=== PATIENT | male | born 1965 | race Caucasian/White ===

== ENCOUNTER 2016-11-20 20:55 | Inpatient (IN) | payer OTHER ==
[~2016-11-20] VITALS: Ht 172.7 cm; Wt 90.7 kg
--- NOTE | 2016-11-20 21:10 | NUR ---
C/O DIFFUSE ABDOMINAL PAIN, LAST BM YESTERDAY AND MINIMAL AND HARD CLUMPS. REPORTS GAS DISCOMFORT BUT UNABLE TO PASS MUCH GAS OR BM TODAY. PAIN IS CONSTANT, ACHING AND DEEP DIFFUSE ABD AND TENDER TO TOUCH. AFEBRILE. +N/-V. PT HAS HX UMBILICAL HERNIA. FEELS PRESSURE ON HIS BLADDER, STATES URINE IS DISCOLORED. TOOK MIRALAX AND SUPPOSITORY WITH MINIMAL RELIEF. PT IS ON COUMADIN, DENIES BLOOD TO STOOL
--- NOTE | 2016-11-20 21:18 | NUR ---
[facility] THAKK[facility] SENT T O LAB VIA S/S
[2016-11-20 21:24] LABS: ABSOLUTE BASOPHIL COUNT 0 /CUMM (0.0-0.2); ABSOLUTE EOSINOPHIL COUNT 0 /CUMM (0.0-0.7); ABSOLUTE GRANULOCYTE CT 17.1 /CUMM (1.4-6.5); ABSOLUTE LYMPH COUNT 1.8 /CUMM (1.2-3.4); ABSOLUTE MONOCYTE COUNT 0.7 /CUMM (0.10-0.60); BASOPHIL % 0.1 % (0.0-2.0); EOSINOPHIL % 0.2 % (0-5); HEMATOCRIT 47.9 % (42-52); MEAN CORPUSCULAR HGB 33.1 PG (27.0-31.0); MEAN CORPUSCULAR HGB CONC 34.6 G/DL (33.0-37.0); MEAN CORPUSCULAR VOLUME 95.5 FL (80.0-94.0); MEAN PLATELET VOLUME 7.4 FL (7.4-10.4); PLATELET COUNT 207 /CUMM (130-400); RED BLOOD CELL CT 5.01 /CUMM (4.70-6.10); WHITE BLOOD CELL COUNT 19.6 /CUMM (4.8-10.8)
[2016-11-20 21:30] LABS: GRANULOCYTE % 87.2 % (42.2-75.2)
[2016-11-20 21:36] LABS: PT 31.7 SEC (9.4-12.5); PTT 46 SEC (25-37)
[2016-11-20] MEDS ORDERED: WARFARIN SODIU7.5 M1 PO (22:06)
[2016-11-20] MEDS ORDERED: ATENOLOL25 M1 PO (22:07)
[2016-11-20] MEDS ORDERED: LOSARTAN-HCTZ1 EAC2 PO (22:07)
[2016-11-20] MEDS ORDERED: COUMADIN7.5 M1 PO (22:07)
[2016-11-20] MEDS ORDERED: MULTI-DAY VITA1 EACH PO (22:07)
[2016-11-20] MEDS ORDERED: AMLODIPINE BESYL5 M1 PO (22:07)
[2016-11-20] MEDS ORDERED: ALEVE220 M1 PO (22:08)
--- NOTE | 2016-11-20 22:16 | ED GI/GU/ABDOMINAL COMPLAINT ---
History of Present Illness General Chief Complaint: Abdominal Pain/Flank Pain Stated Complaint: PT IS HAVING ABDOMINAL PAIN Source: patient, family, old records Exam Limitations: no limitations Vital Signs & Intake/Output Vital Signs & Intake/Output Vital Signs Date Time Temp Pulse Resp B/P B/P Pulse O2 O2 Flow FiO2 Mean Ox Delivery Rate 11/25 0808 82 150/82 11/25 0640 99.2 72 20 146/80 97 CPAP 11/24 2253 97.8 71 20 136/68 97 Room Air 11/24 1448 97.9 66 20 138/80 98 ED Intake and Output 11/25 0000 11/24 1200 Intake Total 2128.5 1050 Output Total 600 Balance 1528.5 1050 Intake, IV 1408.5 950 Intake, Oral 720 100 Number 2 3 Bowel Movements Output, Urine 600 Allergies Coded Allergies: No Known Allergies (11/20/16) Reconcile Medications Amlodipine Besylate 5 MG TABLET 1 TAB PO DAILY BP (Reported) Atenolol 25 MG TABLET 1 TAB PO DAILY BP (Reported) Losartan/Hydrochlorothiazide (Losartan-Hctz 100-25 MG Tab) 100 MG-25 MG TABLET 1 TAB PO DAILY BP (Reported) Multivitamin (Multi-Day Vitamins) 1 EACH TABLET 1 TAB PO DAILY SUPPLEMENT ( Reported) Naproxen Sodium (Aleve) 220 MG CAPSULE 2 TAB PO ONCE PAIN (Reported) Warfarin Sodium 7.5 MG TABLET 1 TAB PO SuTuThSa BLOOD THINNER (Reported) Warfarin Sodium (Coumadin) 7.5 MG TABLET 0.5 TAB PO Friday BLOOD THINNER (Reported) Triage Note: C/O DIFFUSE ABDOMINAL PAIN, LAST BM YESTERDAY AND MINIMAL AND HARD CLUMPS. REPORTS GAS DISCOMFORT BUT UNABLE TO PASS MUCH GAS OR BM TODAY. PAIN IS CONSTANT, ACHING AND DEEP DIFFUSE ABD AND TENDER TO TOUCH. AFEBRILE. +N/-V. PT HAS HX UMBILICAL HERNIA. FEELS PRESSURE ON HIS BLADDER, STATES URINE IS DISCOLORED. TOOK MIRALAX AND SUPPOSITORY WITH MINIMAL RELIEF. PT IS ON COUMADIN, DENIES BLOOD TO STOOL Triage Nurses Notes Reviewed? yes HPI: 51M PMH AVR s/p [facility] Valve on Coumadin, HTN, presenting with 1 day of 10/ 10 lower abdominal pain, exquisitely tender, 2 small loose stools. Denies nausea, vomiting, fever, chills, chest pain, SOB. No appetite so has not been eating, but has been drinking plenty of water. Feels well otherwise, no prior symptoms. Denies bloody stools, constipation. Still passing gas. Past History Travel History Traveled to [place] past 21 day No Medical History Any Pertinent Medical History? see below for history Neurological: NONE EENT: NONE Cardiovascular: hypertension, ARTIFICIAL AORTIC VALVE Respiratory: NONE Gastrointestinal: NONE Hepatic: NONE Renal: NONE Musculoskeletal: NONE Psychiatric: NONE Endocrine: NONE Surgical History Surgical History: aortic valve replacement Psychosocial History What is your primary language [place] Tobacco Use: Never used ETOH Use: occasional use Illicit Drug Use: denies illicit drug use Family History Hx Contributory? No Review of Systems Review of Systems Constitutional: Reports: no symptoms. EENTM: Reports: no symptoms. Respiratory: Reports: no symptoms. Cardiovascular: Reports: no symptoms. GI: Reports: see HPI. Genitourinary: Reports: no symptoms. Musculoskeletal: Reports: no symptoms. Skin: Reports: no symptoms. Neurological/Psychological: Reports: no symptoms. Hematologic/Endocrine: Reports: no symptoms. Immunologic/Allergic: Reports: no symptoms. All Other Systems: Reviewed and Negative Physical Exam Physical Exam General Appearance: well developed/nourished, no apparent distress, alert, awake , comfortable Head: atraumatic, normal appearance Eyes: Bilateral: normal appearance. Ears, Nose, Throat, Mouth: moist mucous membrane Neck: normal inspection, supple Respiratory: normal breath sounds, chest non-tender, no respiratory distress, lungs clear Cardiovascular: regular rate/rhythm Gastrointestinal: tenderness to light palpiation to lower abdomen Extremities: normal range of motion Core Measures ACS in differential dx? No Severe Sepsis Present: No Septic Shock Present: No Progress Differential Diagnosis: AAA, AMI, appendicitis, biliary colic, bowel obstruction , colon cancer, cholecystitis, diverticulitis, epididymitis, esophageal varices, gastritis, hepatitis, hernia, hemorrhoids, ischemic bowel, inflamm bowel dis, Britany-Vanessa tear, orchitis, pancreatitis, prostatitis, peptic ulcer, PUD/GERD, perforated viscous, pyelonephritis, SBO, STD, testicular torsion, ureterolithiasis, urinary retention, urethritis, UTI/pyelo Plan of Care: Orders Procedure Date/time Status PARTIAL THROMBOPLASTIN TIME 11/25 1930 Active PARTIAL THROMBOPLASTIN TIME 11/25 0815 Complete PROTHROMBIN TIME 11/25 0600 Complete CBC WITHOUT DIFFERENTIAL 11/25 0600 Complete BASIC ELECTROLYTES PLUS BUN&CR 11/25 0600 Complete Nursing Misc 11/25 UNK Active Current Medications Sig/Pricila Start time Last Medication Dose Stop Time Status Admin Atenolol 25 MG DAILY 11/22 1833 AC 11/25 (Tenormin) 0808 Ceftriaxone Sodium 1,000 MG Q24H 11/21 2345 AC 11/24 (Rocephin) 2357 Morphine Sulfate 2 MG Q2P PRN 11/21 1100 AC 11/25 (Morphine) 1228 Heparin Sodium 25,000 UNIT Q24H 11/21 0115 AC 11/25 (Porcine) 0625 (Heparin) Sodium Chloride 500 ML Metronidazole 500 MG IQ8 11/21 0000 AC 11/25 (Flagyl) 0808 N/A 1 UNIT (No Carrier) Laboratory Tests 11/25/16 0815: APTT Cancelled 11/25/16 0815: Anion Gap 13, Estimated GFR > 60, BUN/Creatinine Ratio 6.7 L, PT 18.2 H, INR 1.74 H, APTT 74 H, CBC w Diff NO MAN DIFF REQ, RBC 4.04 L, MCV 97.1 H, MCH 33.6 H, RDW 13.0, MPV 7.1 L, Gran % 67.8, Lymphocytes % 17.1 L, Monocytes % 10.8 H, Eosinophils % 3.8, Basophils % 0.5, Absolute Granulocytes 6.9 H, Absolute Lymphocytes 1.7, Absolute Monocytes 1.1 H, Absolute Eosinophils 0.4, Absolute Basophils 0, PUBS MCHC 34.6 11/24/16 1925: APTT 68 H Initial ED EKG: none Departure Departure Disposition: STILL A PATIENT Condition: Stable Clinical Impression Primary Impression: Acute diverticulitis Secondary Impressions: Perforated sigmoid colon Referrals: WINNIE VALLES,VELMA Engel (PCP/Family) Departure Forms: Customer Survey General Discharge Information Admission Note Spoke With: DONATO FENG MD Documentation of Exam: Documentation of any treatments & extenuating circumstances including Concerns Regarding Discharge (functional status, medication knowledge or non-compliance, living conditions, etc.) that warrant an admission rather than observation: DIVERTICULITIS WITH PERFORATED SIGMOID COLON DONATO FENG MD Documentation of Exam: Documentation of any treatments & extenuating circumstances including Concerns Regarding Discharge (functional status, medication knowledge or non-compliance, living conditions, etc.) that warrant an admission rather than observation: DIVERTICULITIS WITH PERFORATED SIGMOID COLON (No Carrier) Sodium Chloride 1,000 ML Q8H 11/20 2230 AC 11/21 (Normal Saline 0.9%) 0616 Laboratory Tests 11/21/16 0800: APTT Cancelled 11/21/16 0702: Lactic Acid 0.9, PT 21.7 H, INR 2.08 H, APTT 38 H 11/21/16 0610: Anion Gap 10, Estimated GFR > 60, BUN/Creatinine Ratio 11.1, Total Bilirubin 2.4 H, Direct Bilirubin 0.6 H, AST 25, ALT 37, Alkaline Phosphatase 59, Total Protein 5.8 L, Albumin 3.6, PT 23.5 H, INR 2.26 H, APTT 38 H, CBC w Diff NO MAN DIFF REQ, RBC 4.40 L, MCV 95.6 H, MCH 33.5 H, RDW 13.2, MPV 7.8, Gran % 87.2 H, Lymphocytes % 6.9 L, Monocytes % 5.7, Eosinophils % 0.2, Basophils % 0 L, Absolute Granulocytes 12.7 H, Absolute Lymphocytes 1.0 L, Absolute Monocytes 0.8 H, Absolute Eosinophils 0, Absolute Basophils 0, PUBS MCHC 35.0 11/21/16 0233: Lactic Acid Cancelled 11/21/16 0010: Lactic Acid Cancelled 11/20/16 2333: Lactic Acid Cancelled, Urine Color YEL, Urine Clarity CLEAR, Urine pH 7.5, Ur Specific [place] <= 1.005, Urine Protein NEG, Urine Ketones NEG, Urine Nitrite NEG, Urine Bilirubin NEG, Urine Urobilinogen 0.2, Ur Leukocyte Esterase NEG, Ur Microscopic SEDIMENT EXAMINED, Urine RBC 10-15 H, Ur Epithelial Cells RARE, Urine Bacteria FEW H, Urine Hemoglobin MOD H, Urine Glucose NEG 11/20/16 2116: Anion Gap 12, Estimated GFR > 60, BUN/Creatinine Ratio 12.2, Glucose 118 H, Lactic Acid 1.2, Calcium 9.3, Total Bilirubin 2.9 H, Direct Bilirubin 0.9 H, AST 33, ALT 45, Alkaline Phosphatase 68, Total Protein 6.8, Albumin 4.3, Globulin 2.5, Albumin/Globulin Ratio 1.7, Lipase 26, PT 31.7 H, INR 3.05 H, APTT 46 H, CBC w Diff NO MAN DIFF REQ, RBC 5.01, MCV 95.5 H, MCH 33.1 H, RDW 13.0, MPV 7.4, Gran % 87.2 H, Lymphocytes % 9.0 L, Monocytes % 3.5, Eosinophils % 0.2, Basophils % 0.1, Absolute Granulocytes 17.1 H, Absolute Lymphocytes 1.8, Absolute Monocytes 0.7 H, Absolute Eosinophils 0, Absolute Basophils 0, PUBS MCHC 34.6 Microbiology 11/21 718 BLOOD: Blood Culture - RECD 11/21 701 BLOOD: Blood Culture - RECD Initial ED EKG: none Departure Departure Disposition: STILL A PATIENT Condition: Stable Clinical Impression Primary Impression: Acute diverticulitis Secondary Impressions: Perforated sigmoid colon Referrals: WINNIE VALLES,VELMA Engel (PCP/Family) Departure Forms: Customer Survey General Discharge Information Admission Note Spoke With: DONATO FENG MD Documentation of Exam: Documentation of any treatments & extenuating circumstances including Concerns Regarding Discharge (functional status, medication knowledge or non-compliance, living conditions, etc.) that warrant an admission rather than observation: DIVERTICULITIS WITH PERFORATED SIGMOID COLON
--- NOTE | 2016-11-20 22:18 | NUR ---
IV EST FOR CT
--- NOTE | 2016-11-20 22:22 | NUR ---
PT AWAKE, ALERT, DENIES NAUSEA BUT STATES HE HASNT EATEN WELL DUE TO NO APPETITE.
--- NOTE | 2016-11-20 22:22 | NUR ---
PT IN ROOM 7. DR LAWSON IN TO SEE PT AND DISCUSS PLAN FOR CTA
--- NOTE | 2016-11-20 22:36 | NUR ---
MORPHINE GIVEN FOR PAIN
--- NOTE | 2016-11-20 22:36 | NUR ---
PT AWARE HE NEEDS TO PROVIDE URINE SPECIMEN
--- NOTE | 2016-11-20 23:13 | NUR ---
PT TO CT SCAN
--- NOTE | 2016-11-20 23:18 | NUR ---
PT RETURNED FROM CT SCAN
--- NOTE | 2016-11-20 23:37 | CT SCAN REPORT ---
EXAMINATION: CT ANGIOGRAM ABDOMEN AND PELVIS CLINICAL INFORMATION: Severe abdominal pain. Elevated lactate. Concern for mesenteric ischemia. COMPARISON: None TECHNIQUE: Contiguous axial thin section helical images of the abdomen and pelvis were performed following the administration of 95 mL of intravenous Optiray 350. The data set was reformatted in the coronal and sagittal planes and reviewed on an independent workstation. 3-D reconstructions will be performed and interpreted by the Interventional Radiologist. DLP: 845 mGy-cm. FINDINGS: There is streaky bibasilar opacification within the posterior basal segments bilaterally. The visualized portions of the heart are unremarkable. The liver is of normal size and attenuation without focal lesions nor intrahepatic biliary ductal dilation. A normal gallbladder is identified. There is no wall thickening or discernible pericholecystic fluid. The spleen, pancreas, adrenal glands are unremarkable. Both kidneys are of normal size and attenuation without hydronephrosis or nephrolithiasis. Following the administration of IV contrast, prompt symmetric nephrograms are displayed. There is no abdominal free fluid. There is neither mesenteric nor retroperitoneal lymphadenopathy. There is a fat-containing umbilical hernia. There is sigmoid diverticulosis. There is fat stranding and wall thickening about the sigmoid colon. There are several flecks of gas present that are likely extraluminal best demonstrated on image [id number]. In addition, there is a small amount of gas anterior to the right lobe of the liver. There are no drainable fluid collections. Otherwise, unremarkable unopacified loops of small and large bowel are identified. There is no pelvic free fluid. The urinary bladder is unremarkable. There is neither pelvic nor inguinal lymphadenopathy. There are bilateral fat-containing inguinal hernias. Bone windows: Neither sclerotic nor lytic bone lesions are identified. There is disc height loss at L5/S1 and, to a lesser degree, L4/L5. There is anterior displacement of L4 in relation to L3 and L5. There is slight increased facet joint sclerosis. IMPRESSION: Perforated sigmoid diverticulitis. No drainable fluid collections. Dependent bibasilar atelectasis. No evidence for mesenteric ischemia. Mild anterior displacement of L4 in relation to L5. There are no pars defects. This could be claim representative of pseudocyst listhesis due to degenerative change within the facet joints of the lower lumbar spine. Please note that an addendum will be issued by one of the Interventional Radiologists following review of the dedicated 3-D images. The aforementioned was communicated to Dr. Mendosa at 2332 hours.
--- NOTE | 2016-11-20 23:41 | NUR ---
SECOND LITER OF IVF STARTED. DR LAWSON IN TO REVIEW CT SCAN THAT SHOWED DIVERTICULITIS
--- NOTE | 2016-11-20 23:51 | NUR ---
PT VERBALIZED HISTORY OF HEMACHROMATOSIS AND DONATES BLOOD EVERY FEW MONTHS FOR TREATMENT. LAST DONATION WAS APPROX 2 MONTHS AGO
--- NOTE | 2016-11-21 00:36 | NUR ---
MD MADE AWARE PATIENT REQUESTING MORPHINE D/T CONTINUED PAIN. PER MD, ORDER WILL BE PLACED. PATIENT AND FAMILY INFORMED WAITING.
--- NOTE | 2016-11-21 00:42 | NUR ---
FLAGYL INFUSING AT 100ML/HR PER EMAR. TOLERATING WELL.
--- NOTE | 2016-11-21 00:58 | NUR ---
PATIENT MEDICATED W/ MORPHINE PER EMAR. TOLERATED WELL.
--- NOTE | 2016-11-21 01:02 | History & Physical ---
ANUJA VALLES,[facility] 11/21/16 0101: General Information and HPI MD Statement: I have seen and personally examined NEISHA LANTIGUA and documented this H&P. The patient is a 51 year old M who presented with a patient stated chief complaint of [abdominal pain]. 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 The patient states that his pain started November 19. He states that the pain was a dull lower abdominal pain. The patient states that he goes to work on the second shift. He states he had his breakfast at 1 PM which was an egg on flaxseed bread and efraín. The patient and his endorse eating bread containing lots of grains and seeds. They also endorse eating alot of meat. The patient states he went to work after breakfast had to return home early at 6: 30PM due to the pain. He stated at that time the pain was a 9 out of 10. The patient then tried multiple laxatives, MiraLAX and a suppository because he thought he was constipated/had a blockage. He states that the pain he was feeling was similar to pain when he had constipation previously. Today he had one small bowel movement. The pain was a constant sharp,pressure but is now diffuse. The most intense pain is just below his belly button. He took 2 Aleve' s this afternoon which provided very little benefit. The patient decided to come into the emergency department since the pain would not reside. The patient reports that the increase in intra-abdominal pressure has caused him to urinate more forcefully. The patient denies any nausea or vomiting, fevers, chills, chest pain, or shortness of breath. Of note, the patient reports multiple colonoscopies due to his brother's colon cancer. Allergies/Medications Allergies: Coded Allergies: No Known Allergies (11/20/16) Home Med list Amlodipine Besylate 5 MG TABLET 1 TAB PO DAILY BP (Reported) Atenolol 25 MG TABLET 1 TAB PO DAILY BP (Reported) Losartan/Hydrochlorothiazide (Losartan-Hctz 100-25 MG Tab) 100 MG-25 MG TABLET 1 TAB PO DAILY BP (Reported) Multivitamin (Multi-Day Vitamins) 1 EACH TABLET 1 TAB PO DAILY SUPPLEMENT ( Reported) Naproxen Sodium (Aleve) 220 MG CAPSULE 2 TAB PO ONCE PAIN (Reported) Warfarin Sodium 7.5 MG TABLET 1 TAB PO AD BLOOD THINNER (Reported) Warfarin Sodium (Coumadin) 7.5 MG TABLET 0.5 TAB PO Friday BLOOD THINNER (Reported) Past History Travel History Traveled to [place] past 21 day No Medical History Neurological: NONE EENT: NONE Cardiovascular: aortic aneurysm, hypertension, St. Asad's valve on coumadin Respiratory: NONE Gastrointestinal: NONE Hepatic: NONE Renal: NONE Musculoskeletal: NONE Psychiatric: NONE Endocrine: NONE Surgical History Surgical History: aortic aneurysm repair and St. Asad's valve insertion Past Family/Social History Family History Relations & Conditions if any BROTHER FH: colon cancer Psychosocial History Smoking Status: Never Smoked ETOH Use: occasional use Illicit Drug Use: denies illicit drug use Review of Systems Review of Systems Constitutional: Denies: chills, fever. Cardiovascular: Denies: chest pain. Respiratory: Denies: short of breath. GI: Denies: nausea, vomiting. Exam & Diagnostic Data Last 24 Hrs of Vital Signs/I&O Vital Signs Date Time Temp Pulse Resp B/P B/P Pulse O2 O2 Flow FiO2 Mean Ox Delivery Rate 11/21 0352 98.9 89 18 120/73 94 Room Air 11/20 2330 99.6 81 18 121/72 96 Room Air 11/20 2105 98.4 92 16 120/81 97 Room Air Intake & Output 11/21 0800 11/21 0000 11/20 1600 Intake Total 1000 2000 Output Total Balance 1000 2000 Intake, IV 1000 2000 Patient 204 lb Weight Physical Exam General Appearance Alert, Oriented X3, Cooperative, No Acute Distress HEENT Atraumatic, PERRLA, EOMI, CN 2-12 intact Cardiovascular Regular Rate, Normal S1, Normal S2, systolic murmurloudest in the pulmonic region Lungs Clear to Auscultation, Normal Air Movement Abdomen diffuse abdominal tenderness, rebound tenderness, hanna sign, hyperactive bowel sounds, distended abdomen Extremities No Edema, Normal Pulses Diagnostic Data Other Results CT ABD IMPRESSION: Perforated sigmoid diverticulitis. No drainable fluid collections. Dependent bibasilar atelectasis. No evidence for mesenteric ischemia. Mild anterior displacement of L4 in relation to L5. There are no pars defects. This could be medical customer service representative of pseudocyst listhesis due to degenerative change within the facet joints of the lower lumbar spine. Please note that an addendum will be issued by one of the Interventional Radiologists following review of the dedicated 3-D images. Assessment/Plan Assessment: A: 51-year-old male with a past history of hypertension, aortic aneurysm, [facility]. Judes valve on Coumadin, presenting with acute perforation of diverticulitis in the setting of a diet consisting of a lot meats, grains, and seeds. As Ranked By This Provider Problem List: 1. Acute diverticulitis Assessment/Plan The patient was found to have acute diverticulitis on CT abdomen. WBC was found to be 19.6 but the patient was afebrile at 99.6.The patient will be kept NPO. We will place the patient on normal saline at 125 ml/hour, continue metronidazole and ceftriaxone, and manage his pain as appropriate. We will also obtain bmp, lft, and differential bili. We will obtain a KUB in the AM to asses worsening gas or any acute abdominal changes. The patient states he would like to try antibiotic treatment and conservative medical management first before any surgical intervention. However we will place a surgery consult. We will hold his home medications for now. We encouraged the patient to pass gas as much as possible. Cardiology consult with Dr. Alejandra will be placed in a.m. for cardiac clearance as a precaution if patient needs to go to the OR. We will monitor vitals and trend lactate to watch for sepsis. -NPO for now except ice chips until futher recommendations -f/u bmp, lft, differential bili -Normal saline at 125 mL per hour -Continue metronidazole and ceftriaxone -morphine for pain control -surgery consult -monitor vitals -trend lactate 2. History of artificial heart valve Assessment/Plan The patient has a history of AA with St. Asad's valve replacement. We will consult cardiology for further management recommendations. We will hold his Coumadin and continue heparin drip. -f/u cardiology consult -hold Coumadin -continue heparin drip 3. DVT prophylaxis Assessment/Plan Heparin 4. Full code status Assessment/Plan Full code Core Measures/Miscellaneous Acute Coronary Syndrome ACS Diagnosis: No Cerebrovascular Accident CVA/TIA Diagnosis: No Congestive Heart Failure CHF Diagnosis: No VTE (View Protocol) VTE Risk Factors: Acute medical illness, Age > 40 No [facility] VTE prophylaxis d/t: No contraindications No VTE Pharm Prophylaxis d/t: No contraindications VTE Diagnosis: No VTE Type: NONE VTE Confirmed by (Test): NONE Sepsis (View Protocol) Severe Sepsis Present: No Septic Shock Septic Shock Present: No Miscellaneous Documentation Attending Case Discussed With: DONATO FENG MD Primary Care Physician: VELMA ZHOU MD Patient sees these Specialists Dr. Alejandra Level of Patient Care: General Medicine RODNEY VALLES,[facility] 11/21/16 0358: Exam & Diagnostic Data Last 24 Hrs of Vital Signs/I&O Vital Signs Date Time Temp Pulse Resp B/P B/P Pulse O2 O2 Flow FiO2 Mean Ox Delivery Rate 11/21 2153 99.4 91 20 130/72 94 Room Air 11/21 1640 Room Air Room Air 11/21 1420 98.5 84 20 138/72 94 11/21 1035 98.8 83 18 122/74 94 11/21 0933 99.1 86 20 136/74 94 Room Air Room Air 11/21 0755 99.0 88 18 113/68 94 Room Air 11/21 0618 98.8 80 18 133/70 96 Room Air 11/21 0352 98.9 89 18 120/73 94 Room Air Intake & Output 11/22 0800 11/22 0000 11/21 1600 Intake Total 1130 Output Total 550 Balance 580 Intake, IV 1100 Intake, Oral 30 Output, Urine 550 Patient 91.172 kg Weight Weight Standing Scale Measurement Method Core Measures/Miscellaneous Acute Coronary Syndrome ACS Diagnosis: No Cerebrovascular Accident CVA/TIA Diagnosis: No Congestive Heart Failure CHF Diagnosis: No VTE (View Protocol) VTE Risk Factors: Acute medical illness, Age > 40 No Mech VTE prophylaxis d/t: No contraindications No VTE Pharm Prophylaxis d/t: No contraindications VTE Diagnosis: No VTE Type: NONE VTE Confirmed by (Test): NONE Sepsis (View Protocol) Severe Sepsis Present: No Septic Shock Septic Shock Present: No Miscellaneous Documentation Attending Case Discussed With: DONATO FENG MD Primary Care Physician: VELMA ZHOU MD Patient sees these Specialists Dr Alejandra Level of Patient Care: General Medicine Resident Review Statement Resident Statement: examined this patient, discussed with restaurant management internship, agreed with restaurant management internship, discussed with family Other Findings: Mr Lantigua is a pleasant 51-year-old gentleman with past medical history of hypertension, 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 The patient states that his discomfort began on 11/19/2016 at approximately 1 PM after he consumed a flax seed efraín roll with 2 eggs. At approximately 6:30 PM on Friday evening the patient was unable to complete his shift and had to go home early due to increasing abdominal discomfort. Over the course of 36 hours prior to admission the patient attempted to take multiple stool softeners and laxatives for symptomatic relief owing to the fact that he thought that he was constipated. Patient also reports that he took 2 Aleve's which he states helped the pain. The patient does have a history of eating foods with a lot of seeds and nuts. His also states he does consume a lot of meat in his diet. He states prior to coming the pain was intolerable rated added 8-9 out of 10 described as a pressure type of pain. He states he hasn't had a proper bowel movement interval 48 hours. During the time of clinical infection his Pepper was present at bedside. Denies a history of any abdominal issues however has had to have multiple colonoscopies owing to a positive family history in his brother who at the the age of 35 due to a GI malignancy. He denies smoking but does endorse frequent alcohol use consuming approximately 3 shots of whiskey multiple times a week. R: Review of systems were negative for fever, chills however positive for mild nausea. He also expresses obstipation. E: HEENT: extraocular motion intact, no nystagmus. Pupils equally round and reactive to light and accommodation. Nose is atraumatic. External auditory canal and Tympanic membranes clear. Pharynx normal. No swelling or edema. Appears Flushed. Neck: Supple, no lymphadenopathy, normal range of motion without pain or tenderness Back: Nontender, No CVA tenderness. Skin: No appreciable rash on exposed skin, skin appears Flushed. Cardiovascular: Regular rate and rhythm, systolic murmur present, most prominenet on pulmonic area. Respiratory: Chest nontender. No respiratory distress. Breath sounds clear to auscultation bilaterally Abdomen: Soft, disended, hyperactive BS, no appreciable organomegaly. Rebound tenderness, right. Hanna sign -. Extremity: No edema, no calf tenderness to palpation, normal and equal pulses. Neuro: Alert oriented to person and place,motor sensory normal, CN II to XII wnl. L: Labs White count of: 19.6, H&H 16.6 and 47.9 respectively, platelets 207. Sodium 135, potassium 3.5, BUN 11, creatinine 0.9. Chloride 100. Bicarbonate 24. I: CT abdomen and pelvis showed: Perforated sigmoid diverticulitis. No drainable fluid collections. Dependent bibasilar atelectasis. No evidence for mesenteric ischemia. 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 Imaging studies did show perforated sigmoid diverticulitis. Patient likely has been predisposition to development of diverticulosis due to meat in diet, nuts and seeds. Will admit the patient to general medical service. While the patient was in the emergency department where he received a surgical consultation to rule out need for emergent surgery and intervention. Surgery on board and will continue to monitor and assess need for Lynn procedure in a.m. Continue antibiotics metronidazole and ceftriaxone. May consider switching to Ciprofloxacin for Pseudemonal Coverage. KUB in a.m. to evaluate for worsening gas in abdomen or illeus. If evidence of ileus may have to insert nasogastric tube. Gentle fluid hydration at 150 mL per hour normal saline. Discontinue the patient's Coumadin and begin him on an IV heparin drip owing to anticoagulation needed in the setting of St. Asad's mechanical valve. Monitor heparin values as per protocol. Patient was initially very hesitant to start off heparin earlier. He understood the risks and benefits. He would be agreeable to starting heparin over the course of the day once he feels that his INR might be reduced Cardiology consult with Dr. Alejandra in a.m. Patient will need cardiac clearance if needs to go to OR. Monitor CBC, BEP and INR in a.m. Pain relief with IV morphine as needed. Hold all home medications for now. Nothing by mouth for now further recommendations are obtained. *High risk of recurrence of this disease patient will need to be informed to increase fiber intake, Reduce nuts and seeds and Reduce meat consumption. Patient may also want to be informed that alcohol and the use of NSAIDs has been shown to be a risk factor for development of Diverticular disease. DONATO FENG 11/21/16 0601: Attending MD Review Statement Attending Statement Attending MD Statement: examined this patient, discuss w/resident/PA/VOCATIONAL ED INSTRUCTOR, agreed w/resident/PA/VOCATIONAL ED INSTRUCTOR, discussed with family, reviewed EMR data (avail), reviewed images, amended to note Attending Assessment/Plan: CC: Left lower quadrant abdominal pain PMH: HTN, aortic aneurysm repair, aortic valve replacement Patient came to ER for diffuse lower abdominal pain, started on Friday, worsening over the time, constipation, nausea but no vomiting. Patient thought his pain was secondary to constipation so he tried to take some MiraLAX without any relief. Denies any chest pain, shortness of breath, fever, chills, urinary symptoms or any blood in stool. Vitals: Afebrile, HR in 8os, RR 18, blood pressure 121/72, saturating well on room air On exam: A O 3, cooperative, in distress secondary to pain, tossing and turning in the bed, neck supple, JVD normal, no lymphadenopathy, mucosa moist, no focal neurological deficit, no dependent edema, no obvious skin rashes or inflammation CVS: S1-S2, RRR, systolic murmur in aortic area. RS: Clear to auscultate bilaterally. Abdomen: Tender diffusely, no guarding or rigidity, bowel sounds decreased. Labs: WBC 19.6, neutrophils 87%, hemoglobin 16.6, platelets 207, BMP unremarkable with bicarbonate of 24, anion gap of 12, BUN 11 and creatinine 0.5, glucose 118, total bilirubin 2.9, transaminases and other liver function unremarkable, INR 3.05, UA unremarkable CTA abdomen and pelvis: 1. Perforated sigmoid diverticulitis. No drainable fluid collections. In addition, there is a small amount of gas anterior to the right lobe of the liver. 2. Dependent bibasilar atelectasis. 3. No evidence for mesenteric ischemia. 4. Mild anterior displacement of L4 in relation to L5. There are no pars defects. This could be medical customer service representative of pseudocyst listhesis due to degenerative change within the facet joints of the lower lumbar spine. A and P 51 year old male with past medical history significant for aortic valve replacement secondary to aortic regurgitation happened after emergent aortic aneurysm surgery, presented in ER for acute 1 day duration of left lower quadrant pain. Patient hemodynamically stable, tender on examination but no guarding or rigidity, decreased bowel sounds. Patient is found to have sigmoid diverticulosis with the fat stranding and wall thickening suggestive of diverticulitis with flakes of gas suggestive of perforation small amount of gas anterior to left lobe of liver. Given this acute abdomen I personally called Dr. Delgadillo regarding surgery, who suggested consultative management and asked medical team for admission because of his cardiac history. He suggested to hold off warfarin and continued on heparin drip. + Acute perforated diverticulitis + History of aortic aneurysm repair and aortic valve replacement + Hyperbilirubinemia - Admit to general medicine - Nothing by mouth except ice chips - Continue aggressive hydration - Closely watch blood pressure for any development of hypotension secondary to sepsis - Trend lactate - DC warfarin, continue heparin drip - Continue IV ceftriaxone and metronidazole - Blood cultures - consult cardiology in a.m. - Repeat PT/PTT INR in a.m. - Hold all home antihypertensives - Repeat CBC, CMP in a.m. - Surgical consult - Adequate pain control
--- NOTE | 2016-11-21 01:03 | NUR ---
SURGICAL PA CRISS AT BEDSIDE FOR EVAL.
--- NOTE | 2016-11-21 01:11 | NUR ---
HOUSE STAFF TO BEDSIDE.
--- NOTE | 2016-11-21 01:31 | NUR ---
HOUSE STAFF REMAINS AT BEDSIDE W/ PATIENT. PER HOUSE STAFF, HEPARIN DRIP ORDERED D/T POSSIBLE SURGICAL CANDIDATE, CURRENTLY TAKES WARFARIN WHICH IS BEING D/CARMEN INCASE SURGERY IS REQUIRED, TO BE PLACED ON HEPARIN DRIP INSTEAD. (PATIENT ON COUMADIN FOR ST. JUDES FILTER, PER ESTEBAN).
--- NOTE | 2016-11-21 01:41 | Cons- General Surgery ---
See Addendum General Information and HPI Consulting Request Date of Consult: 11/21/16 Requested By: Hospitalist Service Reason for Consult: Abdominal pain Source of Information: patient, family Exam Limitations: no limitations History of Present Illness: Mr. Rowley is a 51-year-old male with a past medical history of hypertension, St. Asad's valve, Coumadin therapy, who states that 2 days ago had a slow onset of lower abdominal pain when he woke up in the morning. He states that he worked all day but by the end of the day told his Jennifer that he needed to go home because of this pain. Today he stated home but the pain worsened which brought him to the emergency room for evaluation. He denies any nausea or vomiting, he has not had a bowel movement but feels like he has to go, and has no significant urinary complaints at this time. He denies a history of previous abdominal symptoms. CAT scan results reveal microperforation localized to the sigmoid colon without free air and a leukocytosis of 19,000. Allergies/Medications Allergies: Coded Allergies: No Known Allergies (11/20/16) Home Med List: Amlodipine Besylate 5 MG TABLET 1 TAB PO DAILY BP (Reported) Atenolol 25 MG TABLET 1 TAB PO DAILY BP (Reported) Losartan/Hydrochlorothiazide (Losartan-Hctz 100-25 MG Tab) 100 MG-25 MG TABLET 1 TAB PO DAILY BP (Reported) Multivitamin (Multi-Day Vitamins) 1 EACH TABLET 1 TAB PO DAILY SUPPLEMENT ( Reported) Naproxen Sodium (Aleve) 220 MG CAPSULE 2 TAB PO ONCE PAIN (Reported) Warfarin Sodium 7.5 MG TABLET 1 TAB PO AD BLOOD THINNER (Reported) Warfarin Sodium (Coumadin) 7.5 MG TABLET 0.5 TAB PO Friday BLOOD THINNER (Reported) Past History Medical History Neurological: NONE EENT: NONE Cardiovascular: hypertension, ARTIFICIAL AORTIC VALVE Respiratory: NONE Gastrointestinal: NONE Hepatic: NONE Renal: NONE Musculoskeletal: NONE Psychiatric: NONE Endocrine: NONE Blood Disorders: HEMACHROMATOSIS Psychosocial History ETOH Use: occasional use Illicit Drug Use: denies illicit drug use Exam & Diagnostic Data Vital Signs and I&O Vital Signs Date Time Temp Pulse Resp B/P B/P Pulse O2 O2 Flow FiO2 Mean Ox Delivery Rate 11/20 2330 99.6 81 18 121/72 96 Room Air 11/20 2105 98.4 92 16 120/81 97 Room Air Intake & Output 11/21 0800 11/21 0000 11/20 1600 11/20 0800 11/20 0000 11/19 1600 Intake Total 1000 1999 Output Total Balance 1000 2000 Intake, IV 1000 1999 Patient 204 lb Weight Physical Exam General Appearance: anxious, mild distress Head: normal appearance Eyes: Bilateral: PERRL. Respiratory: normal breath sounds Cardiovascular: regular rate/rhythm Gastrointestinal: focal abdominal tenderness to palpation of lower abdomen, positive bowel sounds, no evidence of diffuse peritonitis, softly distended Extremities: no edema Last 24 Hours of Labs: Laboratory Tests 11/21 11/20 0010 2333 Chemistry Lactic Acid Cancelled Cancelled Urines Urine Color (YEL,AMB,STR) YEL Urine Clarity (CLEAR) CLEAR Urine pH (5.0 - 8.0) 7.5 Ur Specific [place] (1.001 - 1.035) <= 1.005 Urine Protein (NEG,<30 MG/DL) NEG Urine Ketones (NEG) NEG Urine Nitrite (NEG) NEG Urine Bilirubin (NEG) NEG Urine Urobilinogen (0.1 - 1.0 EU/dl) 0.2 Ur Leukocyte Esterase (NEG) NEG Ur Microscopic SEDIMENT EXAMINED Urine RBC (0 - 5 /HPF) 10-15 H Ur Epithelial Cells (NONE,FEW) RARE Urine Bacteria (NEG/NONE) FEW H Urine Hemoglobin (NEG) MOD H Urine Glucose (N MG/DL) NEG 11/21 2115 Chemistry Sodium (137 - 145 mmol/L) 135 L Potassium (3.5 - 5.1 mmol/L) 3.5 Chloride (98 - 107 mmol/L) 100 Carbon Dioxide (22 - 30 mmol/L) 24 Anion Gap (5 - 16) 12 BUN (9 - 20 mg/dL) 11 Creatinine (0.7 - 1.2 mg/dL) 0.9 Estimated GFR (>60 ml/min) > 60 BUN/Creatinine Ratio (7 - 25 %) 12.2 Glucose (65 - 99 mg/dL) 118 H Lactic Acid (0.7 - 2.1 mmol/L) 1.2 Calcium (8.4 - 10.2 mg/dL) 9.3 Total Bilirubin (0.2 - 1.3 mg/dL) 2.9 H AST (17 - 59 U/L) 33 ALT (21 - 72 U/L) 45 Alkaline Phosphatase (< 127 U/L) 68 Total Protein (6.3 - 8.2 g/dL) 6.8 Albumin (3.5 - 5.0 g/dL) 4.3 Globulin (1.9 - 4.2 gm/dL) 2.5 Albumin/Globulin Ratio (1.1 - 2.2 %) 1.7 Lipase (23 - 300 U/L) 26 Coagulation PT (9.4 - 12.5 SEC) 31.7 H INR (0.90 - 1.17) 3.05 H APTT (25 - 37 SEC) 46 H Hematology CBC w Diff NO MAN DIFF REQ WBC (4.8 - 10.8 /CUMM) 19.6 H RBC (4.70 - 6.10 /CUMM) 5.01 Hgb (14.0 - 18.0 G/DL) 16.6 Hct (42 - 52 %) 47.9 MCV (80.0 - 94.0 FL) 95.5 H MCH (27.0 - 31.0 PG) 33.1 H RDW (11.5 - 14.5 %) 13.0 Plt Count (130 - 400 /CUMM) 207 MPV (7.4 - 10.4 FL) 7.4 Gran % (42.2 - 75.2 %) 87.2 H Lymphocytes % (20.5 - 51.1 %) 9.0 L Monocytes % (1.7 - 9.3 %) 3.5 Eosinophils % (0 - 5 %) 0.2 Basophils % (0.0 - 2.0 %) 0.1 Absolute Granulocytes (1.4 - 6.5 /CUMM) 17.1 H Absolute Lymphocytes (1.2 - 3.4 /CUMM) 1.8 Absolute Monocytes (0.10 - 0.60 /CUMM) 0.7 H Absolute Eosinophils (0.0 - 0.7 /CUMM) 0 Absolute Basophils (0.0 - 0.2 /CUMM) 0 PUBS MCHC (33.0 - 37.0 G/DL) 34.6 Imaging Results: SERVICE DATE: 11/20/16 EXAM TYPE: CAT - CT ABD & PELVIS ANGIOGRAM EXAMINATION: CT ANGIOGRAM ABDOMEN AND PELVIS CLINICAL INFORMATION: Severe abdominal pain. Elevated lactate. Concern for mesenteric ischemia. COMPARISON: None TECHNIQUE: Contiguous axial thin section helical images of the abdomen and pelvis were performed following the administration of 95 mL of intravenous Optiray 350. The data set was reformatted in the coronal and sagittal planes and reviewed on an independent workstation. 3-D reconstructions will be performed and interpreted by the Interventional Radiologist. DLP: 845 mGy-cm. FINDINGS: There is streaky bibasilar opacification within the posterior basal segments bilaterally. The visualized portions of the heart are unremarkable. The liver is of normal size and attenuation without focal lesions nor intrahepatic biliary ductal dilation. A normal gallbladder is identified. There is no wall thickening or discernible pericholecystic fluid. The spleen, pancreas, adrenal glands are unremarkable. Both kidneys are of normal size and attenuation without hydronephrosis or nephrolithiasis. Following the administration of IV contrast, prompt symmetric nephrograms are displayed. There is no abdominal free fluid. There is neither mesenteric nor retroperitoneal lymphadenopathy. There is a fat-containing umbilical hernia. There is sigmoid diverticulosis. There is fat stranding and wall thickening about the sigmoid colon. There are several flecks of gas present that are likely extraluminal best demonstrated on image 527/783. In addition, there is a small amount of gas anterior to the right lobe of the liver. There are no drainable fluid collections. Otherwise, unremarkable unopacified loops of small and large bowel are identified. There is no pelvic free fluid. The urinary bladder is unremarkable. There is neither pelvic nor inguinal lymphadenopathy. There are bilateral fat-containing inguinal hernias. Bone windows: Neither sclerotic nor lytic bone lesions are identified. There is disc height loss at L5/S1 and, to a lesser degree, L4/L5. There is anterior displacement of L4 in relation to L3 and L5. There is slight increased facet joint sclerosis. IMPRESSION: Perforated sigmoid diverticulitis. No drainable fluid collections. Dependent bibasilar atelectasis. No evidence for mesenteric ischemia. Mild anterior displacement of L4 in relation to L5. There are no pars defects. This could be credit and collections representative of pseudocyst listhesis due to degenerative change within the facet joints of the lower lumbar spine. Please note that an addendum will be issued by one of the Interventional Radiologists following review of the dedicated 3-D images. The aforementioned was communicated to Dr. Mendosa at 2332 hours. DICTATED BY: MINGO LOVE MD DATE/TIME DICTATED:11/20/162321 SUPERVISOR BLASTING:LATONYA DATE/TIME TRANSCRIBED:11/20/162321 Assessment/Plan Assessment/Plan Mr. Rowley is a 51-year-old male with acute onset of abdominal pain that has worsened over the last 24 hours. CAT scan results revealed microperforation of the sigmoid colon without free air. There is also a leukocytosis to 19,000. Given the fact that he has an elevated INR, history of St. Asad's valve, the patient will be admitted to the medical service and placed on a heparin drip in the event that the patient needs to go to surgery for emergent Briseno's procedure. We will continue with serial abdominal exams, intravenous antibiotics, and recommend cardiology consultation by his funeral director Dr. Alejandra. Dr. Delgadillo is aware and will evaluate the patient in the a.m. this surgical plan was discussed in detail with the patient and his and they are also in agreement. Consult Acknowledgment - Thank you for your consult request.
--- NOTE | 2016-11-21 01:42 | NUR ---
HOUSE STAFF REMAINS AT BEDSIDE. FLAGYL INFUSION COMPLETE. NS INITIATED AT 75ML/HR PER EMAR. TOLERATING WELL.
--- NOTE | 2016-11-21 02:07 | NUR ---
HEPARIN DRIP INITIATED AT 26ML/HR (1300 UNITS/HR PER MAX DOSE), VERIFIED W/ JIGNESH HANNON. REPEAT PT/PTT ORDERED FOR 0800 PER POLICY.
--- NOTE | 2016-11-21 02:32 | NUR ---
PATIENT NOW REPORTING "UNCOMFORTABLE W/ HEPARIN DRIP D/T TOOK TO LONG TO GET MY COUMADIN LEVELS UNDER CONTROL." SPOKE IN DEPTH W/ PATIENT REGARDING INDICATION, AND PATIENT MADE AWARE THAT PTT/INR LEVELS CONTINUE TO BE MONITORED, PATIENT CONTINUES TO REQUEST TO SPEAK W/ MD. MD ORELLANA AWARE AND WILL GO TO BEDSIDE TO SPEAK W/ PATIENT. HEPARIN DRIP PLACED ON HOLD.
--- NOTE | 2016-11-21 03:26 | NUR ---
MD FENG AT BEDSIDE SPEAKING W/ PATIENT REGARDING CONCERN FOR HEPARIN DRIP. PER MD, "CAN KEEP DRIP STOPPED AND RESTART AT 0600 THIS AM, PTT/INR TO BE CHANGED FROM 0800 TO 1400." PATIENT PROVIDED ICE CHIPS BY .
--- NOTE | 2016-11-21 03:52 | NUR ---
PATIENT MEDICATED W/ MORPHINE PER EMAR. TOLERATED WELL.
--- NOTE | 2016-11-21 06:02 | Admission Certification ---
Admission Certification Certification Statement - As attending physician, I certify that at the time of - admission, based on clinical presentation, severity of - symptoms, need for further diagnostic testing and - therapeutic interventions, and risk of adverse outcomes - without in-hospital treatment, in my clinical assessment, - this patient requires an acute hospital stay for a minimum - of two nights or longer. I have also considered psychsocial - factors such as support system, advanced age, financial - issues, cognitive issues, and failed out-patient treatments, - past re-admission history, safety of patient, and lack of - compliance as applicable. Specific rationale supporting this admission is: Acute perforated sigmoid diverticulitis
--- NOTE | 2016-11-21 06:04 | NUR ---
BLU INITIATED AND SHEA.
--- NOTE | 2016-11-21 06:08 | NUR ---
NS INCREASED FROM 75ML/HR TO 125ML/HR PER EMAR. TOLERATING WELL. AM LABS IN PROGRESS.
--- NOTE | 2016-11-21 06:12 | NUR ---
ATTEMPT MADE TO REEST HEPARIN DRIP, PATIENT STATES "DON'T REALLY WANT TO, I KNOW I'M COVERED W/ MY COUMADIN. ALSO, THE DOCTORS SAID I COULD START AFTER THE SURGEON COMES IN AT 0715 TODAY IF THEY FELT I STILL NEEDED TO." HOUSE STAFF PAGED TO INFORM.
--- NOTE | 2016-11-21 06:18 | NUR ---
MD ORELLANA AWARE THAT PATIENT REFUSING HEPARIN UNTIL SPEAKS W/ SURGERY THIS AM. ALSO AWARE PATIENT REPORTS PAIN INCREASING SLIGHTLY AGAIN. NO PRN ORDERS FOR PAIN CURRENTLY IN ORDERS.
--- NOTE | 2016-11-21 06:38 | NUR ---
HOUSE STAFF PLACED ORDERS AT THIS TIME FOR LACTIC ACID AND BLOOD CULTURES. SPOKE W/ HOUSE STAFF TO CONFIRM, HOSUE STAFF AWARE PATIENT RECIEVED ABX HOURS PRIOR. PER HOUSE STAFF, BLOOD CULTURES AND LACTIC ACID TO BE COLLECTED AT THIS TIME. YUE KILLIAN AWARE AND AT BEDSIDE FOR A SECOND MORNING LAB BLOODDRAW.
[2016-11-21 06:46] LABS: ABSOLUTE BASOPHIL COUNT 0 /CUMM (0.0-0.2); ABSOLUTE EOSINOPHIL COUNT 0 /CUMM (0.0-0.7); ABSOLUTE GRANULOCYTE CT 12.7 /CUMM (1.4-6.5); ABSOLUTE MONOCYTE COUNT 0.8 /CUMM (0.10-0.60); BASOPHIL % 0 % (0.0-2.0); EOSINOPHIL % 0.2 % (0-5); GRANULOCYTE % 87.2 % (42.2-75.2); MEAN CORPUSCULAR HGB 33.5 PG (27.0-31.0); MEAN CORPUSCULAR VOLUME 95.6 FL (80.0-94.0); MEAN PLATELET VOLUME 7.8 FL (7.4-10.4); PLATELET COUNT 164 /CUMM (130-400); RBC DISTRIBUTION WIDTH 13.2 % (11.5-14.5); WHITE BLOOD CELL COUNT 14.6 /CUMM (4.8-10.8)
[2016-11-21 06:54] LABS: PT 23.5 SEC (9.4-12.5); PTT 38 SEC (25-37)
--- NOTE | 2016-11-21 07:30 | NUR ---
PT TO XRAY VIA STRETCHER
--- NOTE | 2016-11-21 07:39 | NUR ---
PT TO ROOM 230 BED 2
--- NOTE | 2016-11-21 08:03 | RADIOLOGY REPORT ---
EXAMINATION: XR ABDOMEN MULTIPLE VIEWS CLINICAL INDICATION: 51-year-old male patient with obstipation. Recent CT exam done 11/20/2016 diagnosed perforated diverticulitis without abscess formation. COMPARISON: CT of the abdomen and pelvis on 11/20/2016. (Small bubbles of extraluminal gas in the left lower quadrant). TECHNIQUE: AP supine and erect views of the abdomen, 4 exposures. FINDINGS: There is no evidence of free air or obstruction. In fact, air is seen throughout the entire gastrointestinal tract. Volume of air has increased since yesterday. This can be attributed to the patient's pain. Liquid stool is seen in the cecum and hepatic flexure. Multiple calcified phleboliths are present in the pelvis. Surgical clips are present in both proximal thighs. Sternal wires are in place. Platelike atelectasis is evident in both lower lobes. IMPRESSION: No obvious extraluminal gas. Increasing air throughout the entire GI tract attributed to this patient's pain caused by the perforated diverticulitis.
--- NOTE | 2016-11-21 08:29 | NUR ---
MED WITH MORPHINE 2MG IV FOR RETURNING C/O DIFFUSE ABD PAIN, IV FLAGYL INFUSING WITHOUT DIFFICULTY AT THIS TIME. REPORT CALLED TO 2 [facility].
--- NOTE | 2016-11-21 08:32 | NUR ---
[facility] CALLED FOR TRANSPORT TO ROOM # [id number] [address].
[2016-11-21 08:38] LABS: PT 21.7 SEC (9.4-12.5); PTT 38 SEC (25-37)
--- NOTE | 2016-11-21 08:42 | NUR ---
HOUSE STAFF AT BEDSIDE.
--- NOTE | 2016-11-21 09:16 | NUR ---
[facility] RE-CALLED FOR TRANSPORT TO [address] [place] [address] A [id number].
[2016-11-21 10:35] VITALS: BP 122/74
--- NOTE | 2016-11-21 13:06 | PN- Att Addend ---
Attending Addendum Attending Brief Note Patient seen and examined, feeling slightly better today. Still has lower abdominal pain. Seen by surgery and so far conservative management is recommended. Vital Signs Date Time Temp Pulse Resp B/P B/P Pulse O2 O2 Flow FiO2 Mean Ox Delivery Rate 11/21 1035 98.8 83 18 122/74 94 11/21 0933 99.1 86 20 136/74 94 Room Air Room Air 11/21 0755 99.0 88 18 113/68 94 Room Air 11/21 0618 98.8 80 18 133/70 96 Room Air 11/21 0352 98.9 89 18 120/73 94 Room Air 11/20 2330 99.6 81 18 121/72 96 Room Air 11/20 2105 98.4 92 16 120/81 97 Room Air on exam; aox3, nad. cv; s1, s2, rrr resp; clear abd; soft, + lower abd tenderness, bs+ ext; no edema. Laboratory Tests 11/21 11/21 11/21 0800 0702 0610 Chemistry Sodium (137 - 145 mmol/L) 139 Potassium (3.5 - 5.1 mmol/L) 3.4 L Chloride (98 - 107 mmol/L) 105 Carbon Dioxide (22 - 30 mmol/L) 24 Anion Gap (5 - 16) 10 BUN (9 - 20 mg/dL) 10 Creatinine (0.7 - 1.2 mg/dL) 0.9 Estimated GFR (>60 ml/min) > 60 BUN/Creatinine Ratio (7 - 25 %) 11.1 Lactic Acid (0.7 - 2.1 mmol/L) 0.9 Total Bilirubin (0.2 - 1.3 mg/dL) 2.4 H Direct Bilirubin (< 0.4 mg/dL) 0.6 H AST (17 - 59 U/L) 25 ALT (21 - 72 U/L) 37 Alkaline Phosphatase (< 127 U/L) 59 Total Protein (6.3 - 8.2 g/dL) 5.8 L Albumin (3.5 - 5.0 g/dL) 3.6 Coagulation PT (9.4 - 12.5 SEC) 21.7 H 23.5 H INR (0.90 - 1.17) 2.08 H 2.26 H APTT (25 - 37 SEC) Cancelled 38 H 38 H Hematology CBC w Diff NO MAN DIFF REQ WBC (4.8 - 10.8 /CUMM) 14.6 H RBC (4.70 - 6.10 /CUMM) 4.40 L Hgb (14.0 - 18.0 G/DL) 14.7 Hct (42 - 52 %) 42.0 MCV (80.0 - 94.0 FL) 95.6 H MCH (27.0 - 31.0 PG) 33.5 H RDW (11.5 - 14.5 %) 13.2 Plt Count (130 - 400 /CUMM) 164 MPV (7.4 - 10.4 FL) 7.8 Gran % (42.2 - 75.2 %) 87.2 H Lymphocytes % (20.5 - 51.1 %) 6.9 L Monocytes % (1.7 - 9.3 %) 5.7 Eosinophils % (0 - 5 %) 0.2 Basophils % (0.0 - 2.0 %) 0 L Absolute Granulocytes (1.4 - 6.5 /CUMM) 12.7 H Absolute Lymphocytes (1.2 - 3.4 /CUMM) 1.0 L Absolute Monocytes (0.10 - 0.60 /CUMM) 0.8 H Absolute Eosinophils (0.0 - 0.7 /CUMM) 0 Absolute Basophils (0.0 - 0.2 /CUMM) 0 PUBS MCHC (33.0 - 37.0 G/DL) 35.0 11/21 11/21 0233 0010 Chemistry Lactic Acid Cancelled Cancelled 11/20 11/20 9840 6251 Chemistry Sodium (137 - 145 mmol/L) 135 L Potassium (3.5 - 5.1 mmol/L) 3.5 Chloride (98 - 107 mmol/L) 100 Carbon Dioxide (22 - 30 mmol/L) 24 Anion Gap (5 - 16) 12 BUN (9 - 20 mg/dL) 11 Creatinine (0.7 - 1.2 mg/dL) 0.9 Estimated GFR (>60 ml/min) > 60 BUN/Creatinine Ratio (7 - 25 %) 12.2 Glucose (65 - 99 mg/dL) 118 H Lactic Acid (0.7 - 2.1 mmol/L) Cancelled 1.2 Calcium (8.4 - 10.2 mg/dL) 9.3 Total Bilirubin (0.2 - 1.3 mg/dL) 2.9 H Direct Bilirubin (< 0.4 mg/dL) 0.9 H AST (17 - 59 U/L) 33 ALT (21 - 72 U/L) 45 Alkaline Phosphatase (< 127 U/L) 68 Total Protein (6.3 - 8.2 g/dL) 6.8 Albumin (3.5 - 5.0 g/dL) 4.3 Globulin (1.9 - 4.2 gm/dL) 2.5 Albumin/Globulin Ratio (1.1 - 2.2 %) 1.7 Lipase (23 - 300 U/L) 26 Coagulation PT (9.4 - 12.5 SEC) 31.7 H INR (0.90 - 1.17) 3.05 H APTT (25 - 37 SEC) 46 H Hematology CBC w Diff NO MAN DIFF REQ WBC (4.8 - 10.8 /CUMM) 19.6 H RBC (4.70 - 6.10 /CUMM) 5.01 Hgb (14.0 - 18.0 G/DL) 16.6 Hct (42 - 52 %) 47.9 MCV (80.0 - 94.0 FL) 95.5 H MCH (27.0 - 31.0 PG) 33.1 H RDW (11.5 - 14.5 %) 13.0 Plt Count (130 - 400 /CUMM) 207 MPV (7.4 - 10.4 FL) 7.4 Gran % (42.2 - 75.2 %) 87.2 H Lymphocytes % (20.5 - 51.1 %) 9.0 L Monocytes % (1.7 - 9.3 %) 3.5 Eosinophils % (0 - 5 %) 0.2 Basophils % (0.0 - 2.0 %) 0.1 Absolute Granulocytes (1.4 - 6.5 /CUMM) 17.1 H Absolute Lymphocytes (1.2 - 3.4 /CUMM) 1.8 Absolute Monocytes (0.10 - 0.60 /CUMM) 0.7 H Absolute Eosinophils (0.0 - 0.7 /CUMM) 0 Absolute Basophils (0.0 - 0.2 /CUMM) 0 PUBS MCHC (33.0 - 37.0 G/DL) 34.6 Urines Urine Color (YEL,AMB,STR) YEL Urine Clarity (CLEAR) CLEAR Urine pH (5.0 - 8.0) 7.5 Ur Specific [place] (1.001 - 1.035) <= 1.005 Urine Protein (NEG,<30 MG/DL) NEG Urine Ketones (NEG) NEG Urine Nitrite (NEG) NEG Urine Bilirubin (NEG) NEG Urine Urobilinogen (0.1 - 1.0 EU/dl) 0.2 Ur Leukocyte Esterase (NEG) NEG Ur Microscopic SEDIMENT EXAMINED Urine RBC (0 - 5 /HPF) 10-15 H Ur Epithelial Cells (NONE,FEW) RARE Urine Bacteria (NEG/NONE) FEW H Urine Hemoglobin (NEG) MOD H Urine Glucose (N MG/DL) NEG A/P; 51 y/o M with pmh sig for hypertension, aortic aneurysm, St. Asad's valve on Coumadin admitted with Perforated sigmoid diverticulitis. Seen by surgery and so far conservative management is recommended. Patient has been started on IV fluids, antibiotics and nothing by mouth. Seen by cardiology for cardiology clearance in case of surgeries indicated. INR was in the low range to the heparin drip was started. Patient on morphine for pain control. DVT prophylaxis: Heparin drip. Daughter at bedside.
[2016-11-21 14:20] VITALS: BP 138/72
--- NOTE | 2016-11-21 14:28 | NUR ---
10:00- PT ARRIVED TO FLOOR VIA STRETCHER FROM ER. REPORT REC'D FROM PAT/ BILINGUAL LEGAL ASSISTANT. PT A/V/OX3. PAIN TO LOWER ABD QUADRANTS 12/19. + BS, +FLATUS. VSS. HEPARIN GTT ORDERED BUT NOT RUNNING. PT REFUSING HEPARIN GTT BECAUSE PT STATES "I DO NOT WANT SURGERY AND MY COUMADIN IS COVERING ME SO I DO NOT NEED THE HEPARIN GTT". PT LAST INR 2.08, LAST PTT 38. PT ALSO QUESTIONING WHY HIS HYPERTENSION MEDS ARE NOT ORDERED FOR HIM. DR. BENITEZ NOTIFIED OF ABOVE AND TO SPEAK TO PT ABOUT THE NECESSITY OF THE HEPARIN GTT. B/P MEDS ON HOLD DUE TO MICROPERFORATION. VSS. ORIENTED TO CALL LIGHT FOR ASSIST. 11:00- PT SEEN BY DR. WREN, DR. BENITEZ, DR. DYER. PT AGREES TO HEPARIN GTT. PAIN MEDICATION TO BE ADJUSTED.
[2016-11-21 18:49] LABS: PTT 51 SEC (25-37)
--- NOTE | 2016-11-21 20:52 | Cons- Cardiology ---
General Information and HPI Consulting Request Date of Consult: 11/21/16 Requested By: DONATO FENG MD History of Present Illness: Rey is a 51 year old male with history of hypertension, hemochromatosis and aortic dissection with aortic root replacement and reimplantation of the coronaries bout 8 year ago. A few days following his aortic root replacement the patient received a [facility]. Asad aortic valve replacement for severe aortic regurgitation. 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 Rey was admitted to with acute diverticulitis complicated by perforation. He has noted severe pain over the past couple days. At his baseline , this patient does have shortness of breath at maximal levels of activity. When he engages in activities that require his arms to be over his head he will have some discomfort in both his arms and chest; but otherwise he is free of chest pain. He does have episodes of heart racing that last for several seconds at a time when resting in bed and he has palpitations with maximal activity. It should be noted that this patient has severe sleep apnea and feels better on CPAP. A couple office visits ago this patient reported a coolness in his right hand relative to the left side. 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 In consideration of the above, Rey was recommended to follow up with his CT surgeon, Dr. Grande who recommended following the lesion with periodic ST scans. His last echocardiogram showed a normal EF of 65% with borderline to mild LVH wth impaired LV relaxation. There was trace tricuspid and aortic regurgitation and trace pulmonic regurgitation. Allergies/Medications Allergies: Coded Allergies: No Known Allergies (11/20/16) Home Med List: Amlodipine Besylate 5 MG TABLET 1 TAB PO DAILY BP (Reported) Atenolol 25 MG TABLET 1 TAB PO DAILY BP (Reported) Losartan/Hydrochlorothiazide (Losartan-Hctz 100-25 MG Tab) 100 MG-25 MG TABLET 1 TAB PO DAILY BP (Reported) Multivitamin (Multi-Day Vitamins) 1 EACH TABLET 1 TAB PO DAILY SUPPLEMENT ( Reported) Naproxen Sodium (Aleve) 220 MG CAPSULE 2 TAB PO ONCE PAIN (Reported) Warfarin Sodium 7.5 MG TABLET 1 TAB PO AD BLOOD THINNER (Reported) Warfarin Sodium (Coumadin) 7.5 MG TABLET 0.5 TAB PO Friday BLOOD THINNER (Reported) Review of Systems Review of Systems: A twelve point review of systems is unremarkable. Past History Travel History Traveled to [place] past 21 day No Medical History Blood Transfusion Hx: No Neurological: NONE EENT: NONE Cardiovascular: aortic aneurysm, hypertension, hyperlipidemia, St. 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 Home Services at Home: None Smoking Status: Former Smoker (quit at age 27) ETOH Use: denies use (1/2 pint bourbon 3x/week), occasional use Illicit Drug Use: denies illicit drug use Exam & Diagnostic Data Vital Signs and I&O Vital Signs Date Time Temp Pulse Resp B/P B/P Pulse O2 O2 Flow FiO2 Mean Ox Delivery Rate 11/21 1640 Room Air Room Air 11/21 1420 98.5 84 20 138/72 94 11/21 1035 98.8 83 18 122/74 94 11/21 0933 99.1 86 20 136/74 94 Room Air Room Air 11/21 0755 99.0 88 18 113/68 94 Room Air 11/21 0618 98.8 80 18 133/70 96 Room Air 11/21 0352 98.9 89 18 120/73 94 Room Air 11/20 2330 99.6 81 18 121/72 96 Room Air 11/20 2105 98.4 92 16 120/81 97 Room Air Intake & Output 11/21 1600 11/21 0800 11/21 0000 11/20 1600 11/20 0800 11/20 0000 Intake Total 1130 1000 2000 Output Total 550 Balance 580 1000 2000 Intake, IV 1100 1000 2000 Intake, Oral 30 Output, Urine 550 Patient 201 lb 204 lb 204 lb Weight Weight Standing Scale Reported by Patient Measurement Method Physical Exam: General: WD/ overweight male in NAD; alert and oriented x 3 HEENT: NC/AT, PERRL, EOMI, clear oropharynx Neck: no JVD, bilateral carotid bruits, subclavian bruits bilaterally L>R Lungs: clear bilaterally Heart:RRR with s/6 systolic murmur at the RUSB, LLSB and apex Abdomen: soft, increased BS, diffusely tender Extremities: mild venous stasis changes, no edema Assessment/Plan Assessment/Plan * This patient has a microperforation and may require emergent surgery. At this time, the patient is not in extremis and watchful waiting is being pursued. The patient will need to have his coumadin held in anticipation of possible surgery but Iv heparin should be started when his INR falls below 1.8. Follow his H/H which, at present, appears to be stable. Rey at his baseline is moderatively active without symptoms of ischemia and has a normal EF and as such is a reasonable risk for surgery, if needed. * Obtain an echocardiogram. * Replete potassium. * Continue amlodipine, losartan and Atenolol as previously prescribed. Consult Acknowledgment - Thank you for your consult request.
[2016-11-21 21:53] VITALS: BP 130/72
[2016-11-22 01:36] LABS: PTT 61 SEC (25-37)
[2016-11-22 06:51] VITALS: BP 124/80
[2016-11-22 08:20] LABS: ABSOLUTE BASOPHIL COUNT 0 /CUMM (0.0-0.2); ABSOLUTE EOSINOPHIL COUNT 0.3 /CUMM (0.0-0.7); ABSOLUTE GRANULOCYTE CT 7.7 /CUMM (1.4-6.5); ABSOLUTE LYMPH COUNT 1.1 /CUMM (1.2-3.4); ABSOLUTE MONOCYTE COUNT 0.9 /CUMM (0.10-0.60); BASOPHIL % 0.2 % (0.0-2.0); EOSINOPHIL % 3.1 % (0-5); GRANULOCYTE % 76.6 % (42.2-75.2); HEMATOCRIT 38.8 % (42-52); MEAN CORPUSCULAR HGB 33.5 PG (27.0-31.0); MEAN CORPUSCULAR HGB CONC 34.6 G/DL (33.0-37.0); MEAN CORPUSCULAR VOLUME 96.8 FL (80.0-94.0); MEAN PLATELET VOLUME 7.6 FL (7.4-10.4); PLATELET COUNT 160 /CUMM (130-400); RED BLOOD CELL CT 4.01 /CUMM (4.70-6.10)
--- NOTE | 2016-11-22 08:55 | PN- Housestaff ---
Subjective Follow-up For: Perforated Sigmoid Diverticulitis Subjective: I saw and examined the patient today. Pt was lying comfortably in bed in no acute distress. Pt states he is doing well today. States he does not want surgical management because he thought he would need a permanent colostomy. Pt states he is passing gas. Pt's pain has improved but still requires morphine. States it is currently a 11/18. Denies chest pain, SOB, n/v, fever or chills. Review of Systems Constitutional: Denies: see HPI. Objective Last 24 Hrs of Vital Signs/I&O Vital Signs Date Time Temp Pulse Resp B/P B/P Pulse O2 O2 Flow FiO2 Mean Ox Delivery Rate 11/22 1424 98.1 80 20 120/64 96 11/22 0651 97.6 93 20 124/80 93 Room Air 11/21 2153 99.4 91 20 130/72 94 Room Air Intake & Output 11/22 1600 11/22 0800 11/22 0000 Intake Total 1240 Output Total Balance 1240 Intake, IV 1000 Intake, Oral 240 Physical Exam General Appearance: Alert, Oriented X3, Cooperative, No Acute Distress HEENT: Atraumatic, PERRLA, EOMI, Mucous Membr. 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 Patient was admitted to the general medicine floor for managment of the followin. Acute Sigmoid Diverticulitis, Perforated - on admission: pt afebrile with WBC of 19.6, lactate: 0.9 - Abdomen CT: Perforated sigmoid diverticulitis. No drainable fluid collections - today: continues to remain afebrile with trending down of WBC: 10.6 today, lactate: 0.7 - pt kept NPO overnight for possible surgery. As per surgery will continue conservative management with medication and IV fluid hydration. Surgery is okay with advancing patient to clear liquids. - will continue on normal saline at 75 ml/hour - will continue metronidazole and ceftriaxone his pain as appropriate. - patient states he would like to try antibiotic treatment and conservative medical management first before any surgical intervention. Pt was under the impression that he would need a permanent colostomy if he has surgery. It was explained to him that it would be temporary and the extent of resection if it occurs would be at the discretion of the surgeon. - Cardiology consult with Dr. Alejandra cleared for surgery if necessary. - will continue to monitor vitals, trend WBC 2. History of artificial heart valve - history of AA with St. Asad's valve replacement. - coumadin held in preparation for possible surgery - on heparin drip - today: surgery stated pt will continue medical management and can be switched back to coumadin - will get an INR today and dose coumadin, will bridge with heparin until patient is therapeutic DVT PPx: Heparin (coumadin held due to possible surgery) Diet: switched to clear liquids as per surgery Code: Full code Problem List: 1. Acute diverticulitis 2. Perforated sigmoid colon 3. History of artificial heart valve Pain Ratin Pain Location: lower abdomen Pain Goal: Pain 7 or less Pain Plan: continue dilaudid prn Tomorrow's Labs & Rationales: cbc bep inr
--- NOTE | 2016-11-22 11:16 | PN- Att Addend ---
Attending Addendum Attending Brief Note Patient seen and examined, overall feeling better today. Abdominal pain has decreased. White count has come down. Patient remained afebrile. Vital Signs Date Time Temp Pulse Resp B/P B/P Pulse O2 O2 Flow FiO2 Mean Ox Delivery Rate 11/22 0651 97.6 93 20 124/80 93 Room Air 11/21 2153 99.4 91 20 130/72 94 Room Air 11/21 1640 Room Air Room Air 11/21 1420 98.5 84 20 138/72 94 on exam: aox3, nad. cv; s1,s2, rrr, [facility]; clear abd; soft, slightly tender on lower abd but improved, bs+ ext; no edema Laboratory Tests 11/22 11/22 11/21 0724 0058 1752 Chemistry Sodium (137 - 145 mmol/L) 138 Potassium (3.5 - 5.1 mmol/L) 3.1 L Chloride (98 - 107 mmol/L) 105 Carbon Dioxide (22 - 30 mmol/L) 23 Anion Gap (5 - 16) 10 BUN (9 - 20 mg/dL) 12 Creatinine (0.7 - 1.2 mg/dL) 0.7 Estimated GFR (>60 ml/min) > 60 BUN/Creatinine Ratio (7 - 25 %) 17.1 Lactic Acid (0.7 - 2.1 mmol/L) 0.7 Coagulation APTT (25 - 37 SEC) 61 H 51 H Hematology CBC w Diff NO MAN DIFF REQ WBC (4.8 - 10.8 /CUMM) 10.0 RBC (4.70 - 6.10 /CUMM) 4.01 L Hgb (14.0 - 18.0 G/DL) 13.4 L Hct (42 - 52 %) 38.8 L MCV (80.0 - 94.0 FL) 96.8 H MCH (27.0 - 31.0 PG) 33.5 H RDW (11.5 - 14.5 %) 13.0 Plt Count (130 - 400 /CUMM) 160 MPV (7.4 - 10.4 FL) 7.6 Gran % (42.2 - 75.2 %) 76.6 H Lymphocytes % (20.5 - 51.1 %) 11.3 L Monocytes % (1.7 - 9.3 %) 8.8 Eosinophils % (0 - 5 %) 3.1 Basophils % (0.0 - 2.0 %) 0.2 Absolute Granulocytes (1.4 - 6.5 /CUMM) 7.7 H Absolute Lymphocytes (1.2 - 3.4 /CUMM) 1.1 L Absolute Monocytes (0.10 - 0.60 /CUMM) 0.9 H Absolute Eosinophils (0.0 - 0.7 /CUMM) 0.3 Absolute Basophils (0.0 - 0.2 /CUMM) 0 PUBS MCHC (33.0 - 37.0 G/DL) 34.6 A/P; 51 y/o M with pmh sig for hypertension, aortic aneurysm, St. Asad's valve on Coumadin admitted with small Perforated sigmoid diverticulitis. At this point patient is managed conservatively. Overall improving. Please replete potassium and add potassium to the IV fluids. Ideally speaking his electrolytes should be within normal range. We'll start the patient on clear liquid diet. (I checked with the surgical PA). He will be kept on clear liquids for now. Continue antibiotics. If patient able to tolerate clear liquid, his atenolol should be resumed. Ultimately his other antihypertensives and cardiac medications will be resumed later. So far blood pressure is stable. DVT px; Heparin drip. Coumadin is held for now just to be on the cautious side in case if he needs any surgery in near future.
[2016-11-22 13:57] LABS: PTT 54 SEC (25-37)
[2016-11-22 14:24] VITALS: BP 120/64
--- NOTE | 2016-11-22 15:19 | PN- General Surgery ---
See Addendum Subjective Subjective: Patient was seen and examined at bedside earlier this morning resting comfortably in bed. He reports significant improvement in his lower abdominal pain compared to yesterday. He states the pain has subsided and is tolerating ice chips and is requesting to drink liquids. He denies any nausea, vomiting, fevers, chills, night sweats. Objective Vital Signs and I&Os Vital Signs Date Time Temp Pulse Resp B/P B/P Pulse O2 O2 Flow FiO2 Mean Ox Delivery Rate 11/22 1424 98.1 80 20 120/64 96 11/22 0651 97.6 93 20 124/80 93 Room Air 11/21 2153 99.4 91 20 130/72 94 Room Air 11/21 1640 Room Air Room Air Intake & Output 11/22 1600 11/22 0800 11/22 0000 11/21 1600 11/21 0800 11/21 0000 Intake Total 1240 1130 1000 2000 Output Total 550 Balance 4727 076 1005 2000 Intake, IV 1000 1100 1000 2000 Intake, Oral 240 30 Output, Urine 550 Patient 201 lb 204 lb 204 lb Weight Weight Standing Scale Reported by Patient Measurement Method Physical Exam: General: The patient resting comfortably in bed awake alert no acute distress. Cardiac: S1-S2 appreciated. Regular rate and rhythm. Lungs: Good inspiratory effort and clear to auscultation bilaterally no wheezing , rales or rhonchi. Abdomen: Soft and obese and mildly distended. Tympanic to percussion and mildly tender to palpation in the lower quadrants and suprapubic region. No rebound or guarding noted. Extremities: No edema bilaterally. Current Medications: Current Medications Sig/Pricila Start time Last Medication Dose Route Stop Time Status Admin Ceftriaxone Sodium 1,000 MG Q24H 11/21 2345 AC 11/21 IV 2252 Heparin Sodium 3,650 UNIT ONCE ONE 11/22 1455 DC (Porcine) IV 11/22 1456 Heparin Sodium 3,600 UNIT ONCE ONE 11/22 1999 DC 11/21 (Porcine) IV 11/21 Heparin Sodium 25,000 UNIT Q24H 11/21 0115 AC 11/22 (Porcine) IV 1451 Sodium Chloride 500 ML Metronidazole 500 MG IQ8 11/21 0000 AC 11/22 N/A 1 UNIT IV 0803 Morphine Sulfate 2 MG Q2P PRN 11/21 1100 AC 11/22 IV 1444 Potassium Chloride 20 MEQ Q13H 11/22 1115 AC 11/22 Sodium Chloride 1,000 ML IV 1233 Sodium Chloride 1,000 ML Q8H 11/20 2230 DC 11/22 IV 0540 Results Last 48 Hours of Labs: Laboratory Tests 11/22 11/22 11/22 11/21 1130 0724 0058 1752 Chemistry Sodium (137 - 145 mmol/L) 138 Potassium (3.5 - 5.1 mmol/L) 3.1 L Chloride (98 - 107 mmol/L) 105 Carbon Dioxide (22 - 30 mmol/L) 23 Anion Gap (5 - 16) 10 BUN (9 - 20 mg/dL) 12 Creatinine (0.7 - 1.2 mg/dL) 0.7 Estimated GFR (>60 ml/min) > 60 BUN/Creatinine Ratio (7 - 25 %) 17.1 Lactic Acid (0.7 - 2.1 mmol/L) 0.7 Coagulation APTT (25 - 37 SEC) 54 H 61 H 51 H Hematology CBC w Diff NO MAN DIFF REQ WBC (4.8 - 10.8 /CUMM) 10.0 RBC (4.70 - 6.10 /CUMM) 4.01 L Hgb (14.0 - 18.0 G/DL) 13.4 L Hct (42 - 52 %) 38.8 L MCV (80.0 - 94.0 FL) 96.8 H MCH (27.0 - 31.0 PG) 33.5 H RDW (11.5 - 14.5 %) 13.0 Plt Count (130 - 400 /CUMM) 160 MPV (7.4 - 10.4 FL) 7.6 Gran % (42.2 - 75.2 %) 76.6 H Lymphocytes % (20.5 - 51.1 %) 11.3 L Monocytes % (1.7 - 9.3 %) 8.8 Eosinophils % (0 - 5 %) 3.1 Basophils % (0.0 - 2.0 %) 0.2 Absolute Granulocytes (1.4 - 6.5 /CUMM) 7.7 H Absolute Lymphocytes (1.2 - 3.4 /CUMM) 1.1 L Absolute Monocytes (0.10 - 0.60 /CUMM) 0.9 H Absolute Eosinophils (0.0 - 0.7 /CUMM) 0.3 Absolute Basophils (0.0 - 0.2 /CUMM) 0 PUBS MCHC (33.0 - 37.0 G/DL) 34.6 11/21 11/21 11/21 0800 0702 0610 Chemistry Sodium (137 - 145 mmol/L) 139 Potassium (3.5 - 5.1 mmol/L) 3.4 L Chloride (98 - 107 mmol/L) 105 Carbon Dioxide (22 - 30 mmol/L) 24 Anion Gap (5 - 16) 10 BUN (9 - 20 mg/dL) 10 Creatinine (0.7 - 1.2 mg/dL) 0.9 Estimated GFR (>60 ml/min) > 60 BUN/Creatinine Ratio (7 - 25 %) 11.1 Lactic Acid (0.7 - 2.1 mmol/L) 0.9 Total Bilirubin (0.2 - 1.3 mg/dL) 2.4 H Direct Bilirubin (< 0.4 mg/dL) 0.6 H AST (17 - 59 U/L) 25 ALT (21 - 72 U/L) 37 Alkaline Phosphatase (< 127 U/L) 59 Total Protein (6.3 - 8.2 g/dL) 5.8 L Albumin (3.5 - 5.0 g/dL) 3.6 Coagulation PT (9.4 - 12.5 SEC) 21.7 H 23.5 H INR (0.90 - 1.17) 2.08 H 2.26 H APTT (25 - 37 SEC) Cancelled 38 H 38 H Hematology CBC w Diff NO MAN DIFF REQ WBC (4.8 - 10.8 /CUMM) 14.6 H RBC (4.70 - 6.10 /CUMM) 4.40 L Hgb (14.0 - 18.0 G/DL) 14.7 Hct (42 - 52 %) 42.0 MCV (80.0 - 94.0 FL) 95.6 H MCH (27.0 - 31.0 PG) 33.5 H RDW (11.5 - 14.5 %) 13.2 Plt Count (130 - 400 /CUMM) 164 MPV (7.4 - 10.4 FL) 7.8 Gran % (42.2 - 75.2 %) 87.2 H Lymphocytes % (20.5 - 51.1 %) 6.9 L Monocytes % (1.7 - 9.3 %) 5.7 Eosinophils % (0 - 5 %) 0.2 Basophils % (0.0 - 2.0 %) 0 L Absolute Granulocytes (1.4 - 6.5 /CUMM) 12.7 H Absolute Lymphocytes (1.2 - 3.4 /CUMM) 1.0 L Absolute Monocytes (0.10 - 0.60 /CUMM) 0.8 H Absolute Eosinophils (0.0 - 0.7 /CUMM) 0 Absolute Basophils (0.0 - 0.2 /CUMM) 0 PUBS MCHC (33.0 - 37.0 G/DL) 35.0 11/21 11/21 0233 0010 Chemistry Lactic Acid Cancelled Cancelled 11/20 11/20 4128 0341 Chemistry Sodium (137 - 145 mmol/L) 135 L Potassium (3.5 - 5.1 mmol/L) 3.5 Chloride (98 - 107 mmol/L) 100 Carbon Dioxide (22 - 30 mmol/L) 24 Anion Gap (5 - 16) 12 BUN (9 - 20 mg/dL) 11 Creatinine (0.7 - 1.2 mg/dL) 0.9 Estimated GFR (>60 ml/min) > 60 BUN/Creatinine Ratio (7 - 25 %) 12.2 Glucose (65 - 99 mg/dL) 118 H Lactic Acid (0.7 - 2.1 mmol/L) Cancelled 1.2 Calcium (8.4 - 10.2 mg/dL) 9.3 Total Bilirubin (0.2 - 1.3 mg/dL) 2.9 H Direct Bilirubin (< 0.4 mg/dL) 0.9 H AST (17 - 59 U/L) 33 ALT (21 - 72 U/L) 45 Alkaline Phosphatase (< 127 U/L) 68 Total Protein (6.3 - 8.2 g/dL) 6.8 Albumin (3.5 - 5.0 g/dL) 4.3 Globulin (1.9 - 4.2 gm/dL) 2.5 Albumin/Globulin Ratio (1.1 - 2.2 %) 1.7 Lipase (23 - 300 U/L) 26 Coagulation PT (9.4 - 12.5 SEC) 31.7 H INR (0.90 - 1.17) 3.05 H APTT (25 - 37 SEC) 46 H Hematology CBC w Diff NO MAN DIFF REQ WBC (4.8 - 10.8 /CUMM) 19.6 H RBC (4.70 - 6.10 /CUMM) 5.01 Hgb (14.0 - 18.0 G/DL) 16.6 Hct (42 - 52 %) 47.9 MCV (80.0 - 94.0 FL) 95.5 H MCH (27.0 - 31.0 PG) 33.1 H RDW (11.5 - 14.5 %) 13.0 Plt Count (130 - 400 /CUMM) 207 MPV (7.4 - 10.4 FL) 7.4 Gran % (42.2 - 75.2 %) 87.2 H Lymphocytes % (20.5 - 51.1 %) 9.0 L Monocytes % (1.7 - 9.3 %) 3.5 Eosinophils % (0 - 5 %) 0.2 Basophils % (0.0 - 2.0 %) 0.1 Absolute Granulocytes (1.4 - 6.5 /CUMM) 17.1 H Absolute Lymphocytes (1.2 - 3.4 /CUMM) 1.8 Absolute Monocytes (0.10 - 0.60 /CUMM) 0.7 H Absolute Eosinophils (0.0 - 0.7 /CUMM) 0 Absolute Basophils (0.0 - 0.2 /CUMM) 0 PUBS MCHC (33.0 - 37.0 G/DL) 34.6 Urines Urine Color (YEL,AMB,STR) YEL Urine Clarity (CLEAR) CLEAR Urine pH (5.0 - 8.0) 7.5 Ur Specific [place] (1.001 - 1.035) <= 1.005 Urine Protein (NEG,<30 MG/DL) NEG Urine Ketones (NEG) NEG Urine Nitrite (NEG) NEG Urine Bilirubin (NEG) NEG Urine Urobilinogen (0.1 - 1.0 EU/dl) 0.2 Ur Leukocyte Esterase (NEG) NEG Ur Microscopic SEDIMENT EXAMINED Urine RBC (0 - 5 /HPF) 10-15 H Ur Epithelial Cells (NONE,FEW) RARE Urine Bacteria (NEG/NONE) FEW H Urine Hemoglobin (NEG) MOD H Urine Glucose (N MG/DL) NEG Assessment/Plan Assessment/Plan This is a 51-year-old male with history of St. Asad's valve on Coumadin admitted with sigmoid diverticulitis with microperforation. From a surgical standpoint, patient is recovering well with conservative management. Patient may be advanced to clear liquids and should remain on IV antibiotics in the form of a ceftriaxone an Flagyl. Recommend bridging patient off heparin drip and restarting his coumadin. All other medical management per the primary team. We will continue to closely follow. Patient discussed with Dr. Delgadillo who is in agreement. Problem List: 1. Acute diverticulitis 2. Perforated sigmoid colon 3. History of artificial heart valve Core Measures/Miscellaneous Venous Thromboembolism VTE Risk Factors: Age > 40 VTE Contraindications: No Contraindications VTE Diagnosis: No VTE Type: NONE VTE Confirmed by (Test): NONE Beta Gabino Is Beta Gabino a Home Med? No Antibiotics Is Patient on Antibiotics? Yes If Yes: infection
--- NOTE | 2016-11-22 20:33 | PN- Cardiology ---
Subjective Subjective: * Doing better with much lessened abdominal discomfort on antibiotics. * Potassium 3.1 * INR is approximately 2 Objective Vital Signs and I&Os Vital Signs Date Time Temp Pulse Resp B/P B/P Pulse O2 O2 Flow FiO2 Mean Ox Delivery Rate 11/22 1424 98.1 80 20 120/64 96 11/22 0651 97.6 93 20 124/80 93 Room Air 11/21 2153 99.4 91 20 130/72 94 Room Air Intake & Output 11/22 1600 11/22 0800 11/22 0000 11/21 1600 11/21 0800 11/21 0000 Intake Total 1240 1130 1000 2000 Output Total 550 Balance 0262 738 6486 2000 Intake, IV 1000 1100 1000 2000 Intake, Oral 240 30 Output, Urine 550 Patient 201 lb 204 lb 204 lb Weight Weight Standing Scale Reported by Patient Measurement Method Physical Exam: General: WD/ overweight male in NAD; alert and oriented x 3 Neck: no JVD, bilateral carotid bruits, subclavian bruits bilaterally L>R Lungs: clear bilaterally Heart:RRR with s/6 systolic murmur at the RUSB, LLSB and apex Abdomen: soft, positive BS, diffusely tender Extremities: mild venous stasis changes, no edema Assessment/Plan Assessment/Plan * Patient is improved. He is cleared for surgery if this becomes necessary. For now continue IV heparin and hold coumadin. * replete potassium Continue telemetry? Yes
[2016-11-22 22:50] VITALS: BP 118/70
[2016-11-22 23:14] LABS: PTT 53 SEC (25-37)
[2016-11-22 23:42] LABS: PT 15.9 SEC (9.4-12.5)
[2016-11-23 06:29] LABS: ABSOLUTE BASOPHIL COUNT 0 /CUMM (0.0-0.2); ABSOLUTE EOSINOPHIL COUNT 0.5 /CUMM (0.0-0.7); ABSOLUTE GRANULOCYTE CT 7.5 /CUMM (1.4-6.5); ABSOLUTE LYMPH COUNT 1.9 /CUMM (1.2-3.4); ABSOLUTE MONOCYTE COUNT 1.2 /CUMM (0.10-0.60); BASOPHIL % 0.3 % (0.0-2.0); EOSINOPHIL % 4.1 % (0-5); GRANULOCYTE % 67.8 % (42.2-75.2); HEMATOCRIT 39.5 % (42-52); MEAN CORPUSCULAR HGB 33.4 PG (27.0-31.0); MEAN CORPUSCULAR HGB CONC 34.9 G/DL (33.0-37.0); MEAN CORPUSCULAR VOLUME 95.7 FL (80.0-94.0); MEAN PLATELET VOLUME 7.3 FL (7.4-10.4); PLATELET COUNT 217 /CUMM (130-400); RBC DISTRIBUTION WIDTH 12.7 % (11.5-14.5); RED BLOOD CELL CT 4.13 /CUMM (4.70-6.10); WHITE BLOOD CELL COUNT 11.1 /CUMM (4.8-10.8)
[2016-11-23 06:43] VITALS: BP 134/72
[2016-11-23 07:07] LABS: PT 15.3 SEC (9.4-12.5)
[2016-11-23 07:10] LABS: PTT 72 SEC (25-37)
--- NOTE | 2016-11-23 10:39 | NUR ---
SPOKE WITH RECRUITMENT ASSISTANT GWEN THIS AM REGARDING CRITICAL POTASSIUM LEVEL OF 2.7. NIGHT RN REPORTED LEVEL AND SPOKE TO NIGHT RECRUITMENT ASSISTANT. THIS RN WANTED TO VERIFY IF MORE INTERVENTION REQUIRED. PER RECRUITMENT ASSISTANT GWEN, NO FURTHER INTERVENTION. IV FLUIDS NOW HAVE 20MEQ KCL, WILL REDRAW IN AM.
--- NOTE | 2016-11-23 10:43 | PN- General Surgery ---
Subjective Subjective: Patient was seen and examined by Dr. Junior this morning. Objective Vital Signs and I&Os Vital Signs Date Time Temp Pulse Resp B/P B/P Pulse O2 O2 Flow FiO2 Mean Ox Delivery Rate 11/23 0949 70 142/70 11/23 0643 97.9 72 16 134/72 95 Room Air 11/22 2250 99.5 86 20 118/70 96 Room Air 11/22 2119 75 128/70 11/22 1424 98.1 80 20 120/64 96 Intake & Output 11/23 0811/23 0000 11/22 1600 11/22 0811/22 0000 Intake Total 1316.4 1240 Output Total 150 Balance -150 1316.4 1240 Intake, IV 866.4 1000 Intake, Oral 450 240 Output, Urine 150 Patient 200 lb Weight Physical Exam: Physical exam was performed by Dr. Junior this morning. It was reported to me the patient still some mild tenderness. Results Last 48 Hours of Labs: Laboratory Tests 11/23 11/23 11/22 0540 0540 2117 Chemistry Sodium (137 - 145 mmol/L) 137 Potassium (3.5 - 5.1 mmol/L) 2.7 *L Chloride (98 - 107 mmol/L) 101 Carbon Dioxide (22 - 30 mmol/L) 26 Anion Gap (5 - 16) 10 BUN (9 - 20 mg/dL) 11 Creatinine (0.7 - 1.2 mg/dL) 0.7 Estimated GFR (>60 ml/min) > 60 BUN/Creatinine Ratio (7 - 25 %) 15.7 Coagulation PT (9.4 - 12.5 SEC) 15.3 H 15.9 H INR (0.90 - 1.17) 1.46 H 1.52 H APTT (25 - 37 SEC) 72 H 53 H Hematology CBC w Diff NO MAN DIFF REQ WBC (4.8 - 10.8 /CUMM) 11.1 H RBC (4.70 - 6.10 /CUMM) 4.13 L Hgb (14.0 - 18.0 G/DL) 13.8 L Hct (42 - 52 %) 39.5 L MCV (80.0 - 94.0 FL) 95.7 H MCH (27.0 - 31.0 PG) 33.4 H RDW (11.5 - 14.5 %) 12.7 Plt Count (130 - 400 /CUMM) 217 MPV (7.4 - 10.4 FL) 7.3 L Gran % (42.2 - 75.2 %) 67.8 Lymphocytes % (20.5 - 51.1 %) 17.3 L Monocytes % (1.7 - 9.3 %) 10.5 H Eosinophils % (0 - 5 %) 4.1 Basophils % (0.0 - 2.0 %) 0.3 Absolute Granulocytes (1.4 - 6.5 /CUMM) 7.5 H Absolute Lymphocytes (1.2 - 3.4 /CUMM) 1.9 Absolute Monocytes (0.10 - 0.60 /CUMM) 1.2 H Absolute Eosinophils (0.0 - 0.7 /CUMM) 0.5 Absolute Basophils (0.0 - 0.2 /CUMM) 0 PUBS MCHC (33.0 - 37.0 G/DL) 34.9 11/22 11/22 11/22 1832 1130 0724 Chemistry Sodium (137 - 145 mmol/L) 138 Potassium (3.5 - 5.1 mmol/L) 3.1 L Chloride (98 - 107 mmol/L) 105 Carbon Dioxide (22 - 30 mmol/L) 23 Anion Gap (5 - 16) 10 BUN (9 - 20 mg/dL) 12 Creatinine (0.7 - 1.2 mg/dL) 0.7 Estimated GFR (>60 ml/min) > 60 BUN/Creatinine Ratio (7 - 25 %) 17.1 Lactic Acid (0.7 - 2.1 mmol/L) 0.7 Coagulation PT Cancelled INR Cancelled APTT (25 - 37 SEC) 54 H Hematology CBC w Diff NO MAN DIFF REQ WBC (4.8 - 10.8 /CUMM) 10.0 RBC (4.70 - 6.10 /CUMM) 4.01 L Hgb (14.0 - 18.0 G/DL) 13.4 L Hct (42 - 52 %) 38.8 L MCV (80.0 - 94.0 FL) 96.8 H MCH (27.0 - 31.0 PG) 33.5 H RDW (11.5 - 14.5 %) 13.0 Plt Count (130 - 400 /CUMM) 160 MPV (7.4 - 10.4 FL) 7.6 Gran % (42.2 - 75.2 %) 76.6 H Lymphocytes % (20.5 - 51.1 %) 11.3 L Monocytes % (1.7 - 9.3 %) 8.8 Eosinophils % (0 - 5 %) 3.1 Basophils % (0.0 - 2.0 %) 0.2 Absolute Granulocytes (1.4 - 6.5 /CUMM) 7.7 H Absolute Lymphocytes (1.2 - 3.4 /CUMM) 1.1 L Absolute Monocytes (0.10 - 0.60 /CUMM) 0.9 H Absolute Eosinophils (0.0 - 0.7 /CUMM) 0.3 Absolute Basophils (0.0 - 0.2 /CUMM) 0 PUBS MCHC (33.0 - 37.0 G/DL) 34.6 11/22 11/21 0058 1752 Coagulation APTT (25 - 37 SEC) 61 H 51 H Assessment/Plan Assessment/Plan Patient is a 51-year-old male with a history of a [facility] Asad valve (on Coumadin) and hypertension, who is now hospital day #2 with a micro-perforated diverticulitis. Patient remains relatively stable with only 1 recent episode of a low-grade temp. Leukocytosis is improving. Symptoms are not worsening. Recommendations: -Per Dr. Junior, patient should continue clear liquid diet. -He does not anticipate the need for surgery during this intraoperative course, so Coumadin can be resumed. -We will consider advancing to full's tomorrow depending on patient's hospital course. -Continue IV antibiotics as ordered. -Replete potassium. -We will continue to follow closely.
--- NOTE | 2016-11-23 12:15 | PN- Housestaff ---
See Addendum Subjective Follow-up For: Perforated diverticulitis Subjective: He's feeling well this morning. Some abdominal pain, 7 out of 10 He had one very small bowel movement but otherwise is passing little gas. No nausea but not really that hungry. He is tolerating the clear liquid diet okay. No chest pain or shortness of breath Review of Systems Constitutional: Reports: no symptoms. EENTM: Reports: no symptoms. Cardiovascular: Reports: no symptoms. Respiratory: Reports: no symptoms. Gastrointestinal: Reports: see HPI. Genitourinary: Reports: no symptoms. Musculoskeletal: Reports: no symptoms. Skin: Reports: no symptoms. Neurological/Psychological: Reports: no symptoms. Hematologic/Endocrine: Reports: no symptoms. Immunologic/Allergic: Reports: no symptoms. Objective Last 24 Hrs of Vital Signs/I&O Vital Signs Date Time Temp Pulse Resp B/P B/P Pulse O2 O2 Flow FiO2 Mean Ox Delivery Rate 11/23 0949 70 142/70 11/23 0643 97.9 72 16 134/72 95 Room Air 11/22 2250 99.5 86 20 118/70 96 Room Air 11/22 2119 75 128/70 11/22 1424 98.1 80 20 120/64 96 Intake & Output 11/23 1600 11/23 0800 11/23 0000 Intake Total 1316.4 Output Total 150 Balance -150 1316.4 Intake, IV 866.4 Intake, Oral 450 Output, Urine 150 Patient 200 lb Weight Physical Exam General Appearance: Alert, Oriented X3, Cooperative, No Acute Distress Cardiovascular: Regular Rate, large murmur, mechanical valve Lungs: Clear to Auscultation Abdomen: Normal Bowel Sounds, bloated, mild tenderness to palpation diffusely. Extremities: No Edema Current Medications: Current Medications Sig/Pricila Start time Last Medication Dose Route Stop Time Status Admin Atenolol 25 MG DAILY 11/22 1833 AC 11/23 PO 0949 Ceftriaxone Sodium 1,000 MG Q24H 11/21 2345 AC 11/22 IV 2315 Heparin Sodium 3,648 UNIT 8 11/22 2308 DC 11/23 (Porcine) IV 11/22 2309 0100 Heparin Sodium 3,650 UNIT ONCE ONE 11/22 1455 DC 11/22 (Porcine) IV 11/22 1456 1537 Heparin Sodium 5,000 UNIT .STK-MED ONE 11/22 1443 DC (Porcine) IV 11/22 1444 Heparin Sodium 25,000 UNIT Q24H 11/21 0115 AC 11/22 (Porcine) IV 2326 Sodium Chloride 500 ML Metronidazole 500 MG IQ8 11/21 0000 AC 11/23 N/A 1 UNIT IV 0814 Morphine Sulfate 2 MG Q2P PRN 11/21 1100 AC 11/23 IV 0814 Potassium Chloride 40 MEQ ONCE ONE 11/23 1400 AC PO 11/23 1401 Potassium Chloride 40 MEQ ONCE ONE 11/23 1300 AC PO 11/23 1301 Potassium Chloride 40 MEQ ONCE ONE 11/23 1200 DC PO 11/23 1201 Potassium Chloride 20 MEQ Q13H 11/22 1115 AC 11/23 Sodium Chloride 1,000 ML IV 0103 Warfarin Sodium 7.5 MG COUMADIN 1700 ONE 11/23 1700 AC PO 11/23 1701 Last 24 Hrs of Lab/Julian Results Last 24 Hrs of Labs/Mics: Laboratory Tests 11/23/16 0540: PT 15.3 H, INR 1.46 H 11/23/16 0540: Anion Gap 10, Estimated GFR > 60, BUN/Creatinine Ratio 15.7, Magnesium Pending, APTT 72 H, CBC w Diff NO MAN DIFF REQ, RBC 4.13 L, MCV 95.7 H, MCH 33.4 H, RDW 12.7, MPV 7.3 L, Gran % 67.8, Lymphocytes % 17.3 L, Monocytes % 10.5 H, Eosinophils % 4.1, Basophils % 0.3, Absolute Granulocytes 7.5 H, Absolute Lymphocytes 1.9, Absolute Monocytes 1.2 H, Absolute Eosinophils 0.5, Absolute Basophils 0, PUBS MCHC 34.9 11/22/167: PT 15.9 H, INR 1.52 H, APTT 53 H 11/22/16 1832: PT Cancelled, INR Cancelled Assessment/Plan Assessment: 51-year-old male with a past history of hypertension, aortic aneurysm, [facility]. 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 Patient was admitted to the general medicine floor for managment of the followin. Acute Sigmoid Diverticulitis, Perforated - on admission: pt afebrile with WBC of 19.6, lactate: 0.9 - Abdomen CT: Perforated sigmoid diverticulitis. No drainable fluid collections - today: continues to remain afebrile with trending down of WBC: 10.6 today, lactate: 0.7 - pt kept NPO overnight for possible surgery. As per surgery will continue conservative management with medication and IV fluid hydration. Surgery is okay with advancing patient to clear liquids. -Currently getting saline with potassium. - will continue metronidazole and ceftriaxone his pain as appropriate. - patient states he would like to try antibiotic treatment and conservative medical management first before any surgical intervention. Pt was under the impression that he would need a permanent colostomy if he has surgery. It was explained to him that it would be temporary and the extent of resection if it occurs would be at the discretion of the surgeon. - Cardiology consult with Dr. Alejandra cleared for surgery if necessary. - will continue to monitor vitals, trend WBC #Hypokalemia. Potassium this morning was 2.7. He was asymptomatic. It is unclear why he is so so hypokalemic none of his medications are likely to do this. We will replete aggressively with 3 times K-Dur every hour and recheck BeP at 5 PM. We'll also check magnesium and replete as necessary. -K-Dur 3 recheck Bep at 5 PM -Check magnesium and replete as necessary 2. History of artificial heart valve - history of AA with [facility] Asad's valve replacement. - on heparin drip -INR this morning 1.46. We will give him some warfarin 5 PM to start the bridging process while keeping heparin on board. DVT PPx: Heparin (coumadin held due to possible surgery) Diet: switched to clear liquids as per surgery Code: Full code Problem List: 1. Perforated sigmoid colon Pain Ratin Pain Location: Abd Pain Goal: Remain pain free Pain Plan: see a/p Tomorrow's Labs & Rationales: cbc, bep, inr, mg
[2016-11-23 14:29] VITALS: BP 118/72
--- NOTE | 2016-11-23 18:48 | NUR ---
NURSING NOTE; PT WAS MOVED FROM 230-02 TO 237-01, MD WILCOX NOTIFIED
[2016-11-23 18:52] LABS: PTT 57 SEC (25-37)
[2016-11-23 22:21] VITALS: BP 132/80
[2016-11-24 01:53] LABS: PTT 72 SEC (25-37)
[2016-11-24 06:36] VITALS: BP 140/82
[2016-11-24 09:11] LABS: PT 16.2 SEC (9.4-12.5)
[2016-11-24 09:14] LABS: PTT 73 SEC (25-37)
[2016-11-24 09:32] LABS: ABSOLUTE BASOPHIL COUNT 0 /CUMM (0.0-0.2); ABSOLUTE EOSINOPHIL COUNT 0.2 /CUMM (0.0-0.7); ABSOLUTE GRANULOCYTE CT 6.4 /CUMM (1.4-6.5); ABSOLUTE LYMPH COUNT 1.3 /CUMM (1.2-3.4); BASOPHIL % 0.1 % (0.0-2.0); EOSINOPHIL % 2.7 % (0-5); GRANULOCYTE % 71.5 % (42.2-75.2); HEMATOCRIT 38.1 % (42-52); MEAN CORPUSCULAR HGB 33.2 PG (27.0-31.0); MEAN CORPUSCULAR HGB CONC 34.2 G/DL (33.0-37.0); MEAN CORPUSCULAR VOLUME 97.1 FL (80.0-94.0); MEAN PLATELET VOLUME 7.4 FL (7.4-10.4); PLATELET COUNT 217 /CUMM (130-400); RBC DISTRIBUTION WIDTH 12.7 % (11.5-14.5); RED BLOOD CELL CT 3.92 /CUMM (4.70-6.10)
--- NOTE | 2016-11-24 10:01 | PN- General Surgery ---
Subjective Subjective: Patient has no major complaints this morning. he denies pain at rest, but admits to some tenderness, relatively unchanged versus yesterday. Bowel function has been improving and he has had several bowel movements since yesterday. Tolerating clears. No nausea or vomiting. He remains afebrile. Coumadin has been resumed and he is on a heparin drip until INR therapeutic. Objective Vital Signs and I&Os Vital Signs Date Time Temp Pulse Resp B/P B/P Pulse O2 O2 Flow FiO2 Mean Ox Delivery Rate 11/24 1001 76 142/82 11/24 0636 98.3 76 16 140/82 99 Room Air 11/23 2221 98.8 70 20 132/80 96 Room Air 11/23 1429 98.2 69 20 118/72 95 Intake & Output 11/24 1600 11/24 0800 11/24 0000 11/23 1600 11/23 0800 11/23 0000 Intake Total 1050 1300 1375.2 1316.4 Output Total 150 Balance 1050 1300 1375.2 -150 1316.4 Intake, IV 950 600 895.2 866.4 Intake, Oral 100 700 480 450 Number 3 2 2 Bowel Movements Output, Urine 150 Patient 200 lb Weight Physical Exam: Gen.: Patient is awake and alert. Ambulating throughout his room independently. No acute distress. Abdomen: Soft and moderately distended. There is still some mild tenderness in the suprapubic and left lower quadrant areas. No significant rebound or guarding. Normoactive bowel sounds are heard. Results Last 48 Hours of Labs: Laboratory Tests 11/24 11/24 11/24 11/23 0745 0745 0125 1810 Chemistry Sodium (137 - 145 mmol/L) 136 L 136 L Potassium (3.5 - 5.1 mmol/L) 4.2 3.2 L Chloride (98 - 107 mmol/L) 108 H 102 Carbon Dioxide (22 - 30 mmol/L) 18 L 28 Anion Gap (5 - 16) 10 6 BUN (9 - 20 mg/dL) 7 L 8 L Creatinine (0.7 - 1.2 mg/dL) 0.6 L 0.6 L Estimated GFR (>60 ml/min) > 60 > 60 BUN/Creatinine Ratio (7 - 25 %) 11.7 13.3 Magnesium (1.6 - 2.3 mg/dL) 1.6 Coagulation PT (9.4 - 12.5 SEC) 16.2 H INR (0.90 - 1.17) 1.55 H APTT (25 - 37 SEC) 73 H 72 H 57 H Hematology CBC w Diff NO MAN DIFF REQ WBC (4.8 - 10.8 /CUMM) 9.0 RBC (4.70 - 6.10 /CUMM) 3.92 L Hgb (14.0 - 18.0 G/DL) 13.0 L Hct (42 - 52 %) 38.1 L MCV (80.0 - 94.0 FL) 97.1 H MCH (27.0 - 31.0 PG) 33.2 H RDW (11.5 - 14.5 %) 12.7 Plt Count (130 - 400 /CUMM) 217 MPV (7.4 - 10.4 FL) 7.4 Gran % (42.2 - 75.2 %) 71.5 Lymphocytes % (20.5 - 51.1 %) 14.1 L Monocytes % (1.7 - 9.3 %) 11.6 H Eosinophils % (0 - 5 %) 2.7 Basophils % (0.0 - 2.0 %) 0.1 Absolute Granulocytes (1.4 - 6.5 /CUMM) 6.4 Absolute Lymphocytes (1.2 - 3.4 /CUMM) 1.3 Absolute Monocytes (0.10 - 0.60 /CUMM) 1.0 H Absolute Eosinophils (0.0 - 0.7 /CUMM) 0.2 Absolute Basophils (0.0 - 0.2 /CUMM) 0 PUBS MCHC (33.0 - 37.0 G/DL) 34.2 11/23 11/23 11/22 0540 0540 2117 Chemistry Sodium (137 - 145 mmol/L) 137 Potassium (3.5 - 5.1 mmol/L) 2.7 *L Chloride (98 - 107 mmol/L) 101 Carbon Dioxide (22 - 30 mmol/L) 26 Anion Gap (5 - 16) 10 BUN (9 - 20 mg/dL) 11 Creatinine (0.7 - 1.2 mg/dL) 0.7 Estimated GFR (>60 ml/min) > 60 BUN/Creatinine Ratio (7 - 25 %) 15.7 Magnesium (1.6 - 2.3 mg/dL) 2.2 Coagulation PT (9.4 - 12.5 SEC) 15.3 H 15.9 H INR (0.90 - 1.17) 1.46 H 1.52 H APTT (25 - 37 SEC) 72 H 53 H Hematology CBC w Diff NO MAN DIFF REQ WBC (4.8 - 10.8 /CUMM) 11.1 H RBC (4.70 - 6.10 /CUMM) 4.13 L Hgb (14.0 - 18.0 G/DL) 13.8 L Hct (42 - 52 %) 39.5 L MCV (80.0 - 94.0 FL) 95.7 H MCH (27.0 - 31.0 PG) 33.4 H RDW (11.5 - 14.5 %) 12.7 Plt Count (130 - 400 /CUMM) 217 MPV (7.4 - 10.4 FL) 7.3 L Gran % (42.2 - 75.2 %) 67.8 Lymphocytes % (20.5 - 51.1 %) 17.3 L Monocytes % (1.7 - 9.3 %) 10.5 H Eosinophils % (0 - 5 %) 4.1 Basophils % (0.0 - 2.0 %) 0.3 Absolute Granulocytes (1.4 - 6.5 /CUMM) 7.5 H Absolute Lymphocytes (1.2 - 3.4 /CUMM) 1.9 Absolute Monocytes (0.10 - 0.60 /CUMM) 1.2 H Absolute Eosinophils (0.0 - 0.7 /CUMM) 0.5 Absolute Basophils (0.0 - 0.2 /CUMM) 0 PUBS MCHC (33.0 - 37.0 G/DL) 34.9 11/22 11/22 1832 1130 Coagulation PT Cancelled INR Cancelled APTT (25 - 37 SEC) 54 H Assessment/Plan Assessment/Plan Patient is a 51-year-old male with a history of a [facility] Asad valve (on Coumadin) and hypertension, who is now hospital day #3 with a micro-perforated diverticulitis. Bowel function and leukocytosis improving. Patient remains afebrile but is still a little tender. Overall, relatively stable clinical state. Plan: -Okay to continue Coumadin with heparin bridge, as surgery is not likely. -OK to advance diet to full liquids. -Continue IV antibiotics with Rocephin and Flagyl as ordered. Monitor temps and WBC. -Pain control. Please report increasing pain levels to surgical PA. -This was d/w Dr. Junior and he is in agreement.
--- NOTE | 2016-11-24 12:50 | PN- Housestaff ---
NAHID VALLES,MARGIE 11/24/16 1243: Subjective Follow-up For: Sigmoid diverticulitis perforated Subjective: I saw and examined the patient today. States he is doing well. Had multiple bowel movements which were thin and soft, denied blood in stool. Pt continues to have abdoominal pain that improves with medications. States he has not required pain med as often. Pt denies fever/chills, n/v/c/d, dysuria, SOB or chest pain. States he feels ready to eat solid food. Surgical PA was in and will be checking with Dr. Delgadillo to advance diet today. Review of Systems Constitutional: Denies: see HPI. Objective Last 24 Hrs of Vital Signs/I&O Vital Signs Date Time Temp Pulse Resp B/P B/P Pulse O2 O2 Flow FiO2 Mean Ox Delivery Rate 11/24 1001 76 142/82 11/24 0636 98.3 76 16 140/82 99 Room Air 11/23 2221 98.8 70 20 132/80 96 Room Air 11/23 1429 98.2 69 20 118/72 95 Intake & Output 11/24 1600 11/24 0800 11/24 0000 Intake Total 1050 1300 Output Total Balance 1050 1300 Intake, IV 950 600 Intake, Oral 100 700 Number 3 2 Bowel Movements Physical Exam General Appearance: Alert, Oriented X3, Cooperative, No Acute Distress Cardiovascular: Regular Rate, Normal S1, Normal S2 Lungs: Clear to Auscultation Abdomen: Normal Bowel Sounds, Soft, mild tenderness to deep palpation in lower abdomen Extremities: No Edema, Normal Pulses Assessment/Plan Assessment: 51-year-old male with a past history of hypertension, aortic aneurysm, [facility]. 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 Patient was admitted to the general medicine floor for managment of the followin. Acute Sigmoid Diverticulitis, Perforated - on admission: pt afebrile with WBC of 19.6, lactate: 0.9 - Abdomen CT: Perforated sigmoid diverticulitis. No drainable fluid collections - today: continues to remain afebrile with trending down of WBC: 10.6 today, lactate: 0.7 - pt kept NPO overnight for possible surgery. As per surgery will continue conservative management with medication and IV fluid hydration. Surgery is okay with advancing patient to clear liquids. -Currently getting saline with potassium. - will continue metronidazole and ceftriaxone his pain as appropriate. - patient states he would like to try antibiotic treatment and conservative medical management first before any surgical intervention. Pt was under the impression that he would need a permanent colostomy if he has surgery. It was explained to him that it would be temporary and the extent of resection if it occurs would be at the discretion of the surgeon. - Cardiology consult with Dr. Alejandra cleared for surgery if necessary. - will continue to monitor vitals, trend WBC #Hypokalemia-resolved Potassium this morning was 2.7. He was asymptomatic. It is unclear why he is so so hypokalemic none of his medications are likely to do this. We will replete aggressively with 3 times K-Dur every hour and recheck BeP at 5 PM. We'll also check magnesium and replete as necessary. -K+: 4.2 today -M.6 2. History of artificial heart valve - history of AA with [facility] Asad's valve replacement. - on heparin drip -INR today: 1.55. Will give him another dose of coumadin today and repeat INR tomorrow (goal INR: 2.5 to 3.5) DVT PPx: Heparin bridge, restarting coumadin Diet: advanced to full liquids today as per surgery Code: Full code Problem List: 1. Perforated sigmoid colon Pain Ratin Pain Location: lower abdomen Pain Goal: Pain 4 or less Pain Plan: continue morphine PRN Tomorrow's Labs & Rationales: CBC BEP INR NIRALI VALLES,RUKHSANA 11/24/16 1455: Attending MD Review Statement Attending Statement Attending MD Statement: examined this patient, discuss w/resident/PA/CREDIT SPECIALIST, agreed w/resident/PA/CREDIT SPECIALIST, reviewed EMR data (avail), discussed with nursing, discussed with case mgmt, reviewed images, amended to note Attending Assessment/Plan: Patient seen and examined, overall improving. He is now passing gas and having bowel movements. Abdominal pain is improving. Vital signs are stable. Abdominal exam shows soft abdomen which is slightly tender in the lower part and bowel sounds are positive. Laboratory Tests 11/24 11/24 11/24 11/23 0745 0745 0125 1810 Chemistry Sodium (137 - 145 mmol/L) 136 L 136 L Potassium (3.5 - 5.1 mmol/L) 4.2 3.2 L Chloride (98 - 107 mmol/L) 108 H 102 Carbon Dioxide (22 - 30 mmol/L) 18 L 28 Anion Gap (5 - 16) 10 6 BUN (9 - 20 mg/dL) 7 L 8 L Creatinine (0.7 - 1.2 mg/dL) 0.6 L 0.6 L Estimated GFR (>60 ml/min) > 60 > 60 BUN/Creatinine Ratio (7 - 25 %) 11.7 13.3 Magnesium (1.6 - 2.3 mg/dL) 1.6 Coagulation PT (9.4 - 12.5 SEC) 16.2 H INR (0.90 - 1.17) 1.55 H APTT (25 - 37 SEC) 73 H 72 H 57 H Hematology CBC w Diff NO MAN DIFF REQ WBC (4.8 - 10.8 /CUMM) 9.0 RBC (4.70 - 6.10 /CUMM) 3.92 L Hgb (14.0 - 18.0 G/DL) 13.0 L Hct (42 - 52 %) 38.1 L MCV (80.0 - 94.0 FL) 97.1 H MCH (27.0 - 31.0 PG) 33.2 H RDW (11.5 - 14.5 %) 12.7 Plt Count (130 - 400 /CUMM) 217 MPV (7.4 - 10.4 FL) 7.4 Gran % (42.2 - 75.2 %) 71.5 Lymphocytes % (20.5 - 51.1 %) 14.1 L Monocytes % (1.7 - 9.3 %) 11.6 H Eosinophils % (0 - 5 %) 2.7 Basophils % (0.0 - 2.0 %) 0.1 Absolute Granulocytes (1.4 - 6.5 /CUMM) 6.4 Absolute Lymphocytes (1.2 - 3.4 /CUMM) 1.3 Absolute Monocytes (0.10 - 0.60 /CUMM) 1.0 H Absolute Eosinophils (0.0 - 0.7 /CUMM) 0.2 Absolute Basophils (0.0 - 0.2 /CUMM) 0 PUBS MCHC (33.0 - 37.0 G/DL) 34.2 A/P; 51 y/o M with pmh sig for hypertension, aortic aneurysm, St. Asad's valve on Coumadin admitted with small Perforated sigmoid diverticulitis. Patient received conservative management. An overall improving. Plan is to advance diet to full liquids. Continue IV heparin to bridge with Coumadin. His goal INR is between 2.5 and 2.5. Continue IV antibiotics. Replete electrolytes as indicated. Please dose Coumadin at 7.5 mg today and recheck INR in the morning.
[2016-11-24 14:48] VITALS: BP 138/80
[2016-11-24 20:07] LABS: PTT 68 SEC (25-37)
[2016-11-24 22:53] VITALS: BP 136/68
[2016-11-25 06:40] VITALS: BP 146/80
--- NOTE | 2016-11-25 07:54 | PN- General Surgery ---
Subjective Subjective: Tolerating fulls. No significant changes. Reports improving bm / incontinence related to passing flatus. No f/c/s. Ambulating without difficulty. Reports some pressure with voiding. Objective Vital Signs and I&Os Vital Signs Date Time Temp Pulse Resp B/P B/P Pulse O2 O2 Flow FiO2 Mean Ox Delivery Rate 11/25 0640 99.2 72 20 146/80 97 CPAP 11/24 2253 97.8 71 20 136/68 97 Room Air 11/24 1448 97.9 66 20 138/80 98 11/24 1001 76 142/82 Intake & Output 11/25 0811/25 0000 11/24 1600 11/24 0800 11/24 0000 11/23 1600 Intake Total 1020 1288.5 840 1050 1300 1375.2 Output Total 600 Balance 1020 1288.5 240 1050 1300 1375.2 Intake, IV 920 808.5 600 950 600 895.2 Intake, Oral 100 480 240 100 700 480 Number 2 3 2 2 Bowel Movements Output, Urine 600 Patient 200 lb Weight Physical Exam: General - alert & oriented x 3. comfortable. no acute distress. Abdomen - soft. bowel sound active throughout. suprapubic tenderness, mild. Current Medications: Current Medications Sig/Pricila Start time Last Medication Dose Route Stop Time Status Admin Atenolol 25 MG DAILY 11/22 1833 AC 11/24 PO 1001 Ceftriaxone Sodium 1,000 MG Q24H 11/21 2345 AC 11/24 IV 2357 Heparin Sodium 25,000 UNIT Q24H 11/21 0115 AC 11/25 (Porcine) IV 0625 Sodium Chloride 500 ML Metronidazole 500 MG IQ8 11/21 0000 AC 11/24 N/A 1 UNIT IV 2357 Morphine Sulfate 2 MG Q2P PRN 11/21 1100 AC 11/25 IV 0051 Potassium Chloride 20 MEQ Q13H 11/22 1115 AC 11/25 Sodium Chloride 1,000 ML IV 0008 Warfarin Sodium 7.5 MG COUMADIN 1700 ONE 11/24 1700 DC 11/24 PO 11/24 1701 1723 Results Last 48 Hours of Labs: Laboratory Tests 11/24 11/24 11/24 11/24 1925 0745 0745 0125 Chemistry Sodium (137 - 145 mmol/L) 136 L Potassium (3.5 - 5.1 mmol/L) 4.2 Chloride (98 - 107 mmol/L) 108 H Carbon Dioxide (22 - 30 mmol/L) 18 L Anion Gap (5 - 16) 10 BUN (9 - 20 mg/dL) 7 L Creatinine (0.7 - 1.2 mg/dL) 0.6 L Estimated GFR (>60 ml/min) > 60 BUN/Creatinine Ratio (7 - 25 %) 11.7 Magnesium (1.6 - 2.3 mg/dL) 1.6 Coagulation PT (9.4 - 12.5 SEC) 16.2 H INR (0.90 - 1.17) 1.55 H APTT (25 - 37 SEC) 68 H 73 H 72 H Hematology CBC w Diff NO MAN DIFF REQ WBC (4.8 - 10.8 /CUMM) 9.0 RBC (4.70 - 6.10 /CUMM) 3.92 L Hgb (14.0 - 18.0 G/DL) 13.0 L Hct (42 - 52 %) 38.1 L MCV (80.0 - 94.0 FL) 97.1 H MCH (27.0 - 31.0 PG) 33.2 H RDW (11.5 - 14.5 %) 12.7 Plt Count (130 - 400 /CUMM) 217 MPV (7.4 - 10.4 FL) 7.4 Gran % (42.2 - 75.2 %) 71.5 Lymphocytes % (20.5 - 51.1 %) 14.1 L Monocytes % (1.7 - 9.3 %) 11.6 H Eosinophils % (0 - 5 %) 2.7 Basophils % (0.0 - 2.0 %) 0.1 Absolute Granulocytes (1.4 - 6.5 /CUMM) 6.4 Absolute Lymphocytes (1.2 - 3.4 /CUMM) 1.3 Absolute Monocytes (0.10 - 0.60 /CUMM) 1.0 H Absolute Eosinophils (0.0 - 0.7 /CUMM) 0.2 Absolute Basophils (0.0 - 0.2 /CUMM) 0 PUBS MCHC (33.0 - 37.0 G/DL) 34.2 07/15 1810 Chemistry Sodium (137 - 145 mmol/L) 136 L Potassium (3.5 - 5.1 mmol/L) 3.2 L Chloride (98 - 107 mmol/L) 102 Carbon Dioxide (22 - 30 mmol/L) 28 Anion Gap (5 - 16) 6 BUN (9 - 20 mg/dL) 8 L Creatinine (0.7 - 1.2 mg/dL) 0.6 L Estimated GFR (>60 ml/min) > 60 BUN/Creatinine Ratio (7 - 25 %) 13.3 Coagulation APTT (25 - 37 SEC) 57 H Assessment/Plan Assessment/Plan Patient is a 51-year-old male with a history of a [employer] Asad valve (on Coumadin) and hypertension, who is now hospital day #4 with a micro-perforated diverticulitis. Bowel function and leukocytosis improving. Patient remains afebrile but is still a little tender. Overall, relatively stable clinical state. continue Coumadin with heparin bridge, as surgery is not likely tolerating fulls. may consider advancing to low residue, but will d/w first continue IV antibiotics with Rocephin and Flagyl as ordered f/u labs pain control as needed will d/w
[2016-11-25 09:30] LABS: PT 18.2 SEC (9.4-12.5)
[2016-11-25 09:33] LABS: ABSOLUTE BASOPHIL COUNT 0 /CUMM (0.0-0.2); ABSOLUTE EOSINOPHIL COUNT 0.4 /CUMM (0.0-0.7); ABSOLUTE GRANULOCYTE CT 6.9 /CUMM (1.4-6.5); ABSOLUTE LYMPH COUNT 1.7 /CUMM (1.2-3.4); ABSOLUTE MONOCYTE COUNT 1.1 /CUMM (0.10-0.60); BASOPHIL % 0.5 % (0.0-2.0); EOSINOPHIL % 3.8 % (0-5); GRANULOCYTE % 67.8 % (42.2-75.2); HEMATOCRIT 39.2 % (42-52); MEAN CORPUSCULAR HGB 33.6 PG (27.0-31.0); MEAN CORPUSCULAR HGB CONC 34.6 G/DL (33.0-37.0); MEAN CORPUSCULAR VOLUME 97.1 FL (80.0-94.0); MEAN PLATELET VOLUME 7.1 FL (7.4-10.4); PLATELET COUNT 239 /CUMM (130-400); RED BLOOD CELL CT 4.04 /CUMM (4.70-6.10); WHITE BLOOD CELL COUNT 10.1 /CUMM (4.8-10.8)
[2016-11-25 11:23] LABS: PTT 74 SEC (25-37)
--- NOTE | 2016-11-25 13:44 | PN- Att Addend ---
Attending Addendum Attending Brief Note Patient seen and examined. Plan of care discussed with the medical team and the patient. Available lab work and radiology test reports were reviewed. Patient feels well and denies any recent fever or chills. He reports the mild to moderate lower abdominal pain. He also reports frequent urination. Note the patient has been on IV fluids. Vital Signs Date Time Temp Pulse Resp B/P B/P Pulse O2 O2 Flow FiO2 Mean Ox Delivery Rate 11/25 0808 82 150/82 11/25 0640 99.2 72 20 146/80 97 CPAP 11/24 2253 97.8 71 20 136/68 97 Room Air 11/24 1448 97.9 66 20 138/80 98 Intake & Output 11/25 1600 11/25 0800 11/25 0000 Intake Total 1020 1288.5 Output Total Balance 1020 1288.5 Intake, IV 920 808.5 Intake, Oral 100 480 Number 2 Bowel Movements Exam: General: Patient awake alert oriented without any distress CVS: S1 plus S2 without any murmur or gallops Chest: Few scattered crepitation without any wheeze. There is no respiratory distress. Abdomen: Soft with moderate tenderness lower abdomen, bowel sound present, no guarding or rebound CABLE WAY OPERATOR: Awake alert oriented without any focal neuro deficit and follows command appropriately Extremities: No edema; no clubbing or cyanosis noted Laboratory Tests 11/25 11/25 11/24 0815 0815 1925 Chemistry Sodium (137 - 145 mmol/L) 135 L Potassium (3.5 - 5.1 mmol/L) 3.7 Chloride (98 - 107 mmol/L) 104 Carbon Dioxide (22 - 30 mmol/L) 19 L Anion Gap (5 - 16) 13 BUN (9 - 20 mg/dL) 4 L Creatinine (0.7 - 1.2 mg/dL) 0.6 L Estimated GFR (>60 ml/min) > 60 BUN/Creatinine Ratio (7 - 25 %) 6.7 L Coagulation PT (9.4 - 12.5 SEC) 18.2 H INR (0.90 - 1.17) 1.74 H APTT (25 - 37 SEC) Cancelled 74 H 68 H Hematology CBC w Diff NO MAN DIFF REQ WBC (4.8 - 10.8 /CUMM) 10.1 RBC (4.70 - 6.10 /CUMM) 4.04 L Hgb (14.0 - 18.0 G/DL) 13.6 L Hct (42 - 52 %) 39.2 L MCV (80.0 - 94.0 FL) 97.1 H MCH (27.0 - 31.0 PG) 33.6 H RDW (11.5 - 14.5 %) 13.0 Plt Count (130 - 400 /CUMM) 239 MPV (7.4 - 10.4 FL) 7.1 L Gran % (42.2 - 75.2 %) 67.8 Lymphocytes % (20.5 - 51.1 %) 17.1 L Monocytes % (1.7 - 9.3 %) 10.8 H Eosinophils % (0 - 5 %) 3.8 Basophils % (0.0 - 2.0 %) 0.5 Absolute Granulocytes (1.4 - 6.5 /CUMM) 6.9 H Absolute Lymphocytes (1.2 - 3.4 /CUMM) 1.7 Absolute Monocytes (0.10 - 0.60 /CUMM) 1.1 H Absolute Eosinophils (0.0 - 0.7 /CUMM) 0.4 Absolute Basophils (0.0 - 0.2 /CUMM) 0 PUBS MCHC (33.0 - 37.0 G/DL) 34.6 Blood cultures have been negative Assessment * Acute diverticulitis sigmoid colon * Microperforation related to acute diverticulitis * Prosthetic heart valve [facility] Plan * Continue current IV antibiotics * Increase ambulation * Discontinue IV fluids * Increase oral liquid intake * If okay with surgery we will like to advance diet * We'll plan to switch antibiotics to oral tomorrow * Possible discharge in next 1-2 days
[2016-11-25 14:25] VITALS: BP 122/80
--- NOTE | 2016-11-25 16:46 | PN- Housestaff ---
Subjective Follow-up For: Perforated Sigmoid Diverticulitis Subjective: Pt is doing better today. Pt states he continues to have abdominal pain which he characterizes as a "bloating pain," but it has now lessened. Pt continues to have bowel movements. Denies hematochezia, hematemesis, n/v/c/d, fever/chills, SOB, chest pain or palpitations. Review of Systems Constitutional: Denies: no symptoms, see HPI. Cardiovascular: Denies: no symptoms. Respiratory: Denies: no symptoms. Gastrointestinal: Reports: see HPI. Genitourinary: Denies: no symptoms. Objective Last 24 Hrs of Vital Signs/I&O Vital Signs Date Time Temp Pulse Resp B/P B/P Pulse O2 O2 Flow FiO2 Mean Ox Delivery Rate 11/25 1425 98.2 68 20 122/80 96 11/25 0808 82 150/82 11/25 0640 99.2 72 20 146/80 97 CPAP 11/24 2253 97.8 71 20 136/68 97 Room Air Intake & Output 11/25 1600 11/25 0800 11/25 0000 Intake Total 1408.5 1020 1288.5 Output Total Balance 1408.5 1020 1288.5 Intake, IV 658.5 920 808.5 Intake, Oral 750 100 480 Number 3 2 Bowel Movements Physical Exam General Appearance: Alert, Oriented X3, Cooperative, No Acute Distress Cardiovascular: Regular Rate, Normal S1, Normal S2 Lungs: Clear to Auscultation Abdomen: Normal Bowel Sounds, Soft, minimal tenderness to palpation in lower quadrants Extremities: No Edema, Normal Pulses Assessment/Plan Assessment: 51-year-old male with a past history of hypertension, aortic aneurysm, 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 Patient was admitted to the general medicine floor for managment of the followin. Acute Sigmoid Diverticulitis, Perforated - on admission: pt afebrile with WBC of 19.6, lactate: 0.9 - Abdomen CT: Perforated sigmoid diverticulitis. No drainable fluid collections - today: continues to remain afebrile with trending down of WBC: 10.6 today, lactate: 0.7 - As per surgery will continue conservative management with medication. Surgery is okay with advancing pt to full liquids yesterday. Maintaining on full liquids today. - surgery: CT Abd/Pelvis w/PO contrast tomorrow AM, will keep pt NPO after midnight - will continue metronidazole and ceftriaxone - Cardiology consult with Dr. Alejandra cleared for surgery if necessary. - will continue to monitor vitals, trend WBC 2. Hypokalemia-resolved Potassium this morning was 2.7. He was asymptomatic. It is unclear why he is so so hypokalemic none of his medications are likely to do this. We will replete aggressively with 3 times K-Dur every hour and recheck BeP at 5 PM. -K+: 3.7 today 3. History of artificial heart valve - history of AA with [facility] valve replacement. - on heparin drip -INR today: 1.74. Will give him another dose of coumadin today and repeat INR tomorrow (goal INR: 2.5 to 3.5) DVT PPx: Heparin bridge, restarting coumadin Diet: advanced to full liquids today, keep NPO after midnight in anticipation of CT Abd/Pelvis w/PO contrast tomorrow AM Code: Full code Problem List: 1. Perforated sigmoid colon Pain Ratin Pain Location: lower abdomen Pain Goal: Pain 4 or less Pain Plan: continue morphine PRN Tomorrow's Labs & Rationales: cbc bep
--- NOTE | 2016-11-25 17:49 | PN- Cardiology ---
Subjective Subjective: * Patient is having his diet advanced and has minimal abdominal discomfort. No chest discomfort or shortness of breath. * Patient has been restarted on coumadin with INR 1.74 Objective Vital Signs and I&Os Vital Signs Date Time Temp Pulse Resp B/P B/P Pulse O2 O2 Flow FiO2 Mean Ox Delivery Rate 11/25 1425 98.2 68 20 122/80 96 11/25 0808 82 150/82 11/25 0640 99.2 72 20 146/80 97 CPAP 11/24 2253 97.8 71 20 136/68 97 Room Air Intake & Output 11/25 1600 11/25 0800 11/25 0000 11/24 1600 11/24 0800 11/24 0000 Intake Total 1408.5 1020 1288.5 840 1050 1300 Output Total 600 Balance 1408.5 1020 1288.5 240 1050 1300 Intake, IV 658.5 920 808.5 600 950 600 Intake, Oral 750 100 480 240 100 700 Number 3 2 3 2 Bowel Movements Output, Urine 600 Physical Exam: General: WD/ overweight male in NAD; alert and oriented x 3 Neck: no JVD, bilateral carotid bruits, subclavian bruits bilaterally L>R Lungs: clear bilaterally Heart:RRR with s/6 systolic murmur at the RUSB, LLSB and apex Abdomen: soft, positive BS, diffusely tender Extremities: mild venous stasis changes, no edema Assessment/Plan Assessment/Plan * Patient is improved. Agree with restarting coumadin in consideration of patient's prosthetic heart valve. Continue telemetry? No
[2016-11-25 18:24] LABS: PTT 51 SEC (25-37)
[2016-11-25 21:20] VITALS: BP 140/70
[2016-11-26 02:56] LABS: PTT > 120 SEC (25-37)
[2016-11-26 07:19] VITALS: BP 152/84
--- NOTE | 2016-11-26 07:24 | PN- Housestaff ---
Subjective Follow-up For: Sigmoid Diverticulitis, Perforated Subjective: Pt states he is doing well. Still has abdominal pain, but it has improved. Pt denies n/v/c/d, hematemesis/hematochezia, fever, chills, chest pain, or SOB. Review of Systems Constitutional: Denies: no symptoms. Cardiovascular: Denies: no symptoms. Respiratory: Denies: no symptoms. Gastrointestinal: Reports: see HPI, abdominal pain. Genitourinary: Denies: no symptoms. Musculoskeletal: Denies: no symptoms. Objective Last 24 Hrs of Vital Signs/I&O Vital Signs Date Time Temp Pulse Resp B/P B/P Pulse O2 O2 Flow FiO2 Mean Ox Delivery Rate 11/26 1418 98.5 60 20 120/68 96 11/26 1259 66 152/86 11/26 0719 98.0 72 18 152/84 98 CPAP 11/25 2120 98.7 88 20 140/70 96 Intake & Output 11/26 1600 11/26 0800 11/26 0000 Intake Total 864 520 350 Output Total Balance 864 520 350 Intake, IV 804 400 350 Intake, Oral 60 120 Number 2 1 Bowel Movements Physical Exam General Appearance: Alert, Oriented X3, Cooperative, No Acute Distress Cardiovascular: Regular Rate, Normal S1, Normal S2 Lungs: Clear to Auscultation Abdomen: Normal Bowel Sounds, Soft, mild tenderness to palpation of lower abdomen Extremities: Normal Pulses, No Tenderness/Swelling Assessment/Plan Assessment: 51-year-old male with a past history of hypertension, aortic aneurysm, 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 Patient was admitted to the general medicine floor for managment of the followin. Acute Sigmoid Diverticulitis, Perforated - on admission: pt afebrile with WBC of 19.6, lactate: 0.9 - Abdomen CT: Perforated sigmoid diverticulitis. No drainable fluid collections - today: continues to remain afebrile with trending down of WBC: 8.6 today - As per surgery will continue conservative management with medication. - will continue metronidazole and ceftriaxone - Cardiology consult with Dr. Alejandra cleared for surgery if necessary. - will continue to monitor vitals, trend WBC - Repeat CT Abd/Pelvis w/PO contrast today: revealed Perforated sigmoid diverticulitis is again noted with free air and interval development of a small 3.0 x 2.2 cm mesenteric abscess collection * Surgery has seen pt and recommend continued conservative management with no intervention at this time * Per surgery - pt's diet can be advanced and is stable for discharge home 2. Hypokalemia-resolved - K+: 3.5 today - will continue to monitor and replete as needed 3. History of artificial heart valve - history of AA with [facility] valve replacement. - on heparin drip - INR today: 2.15. Will give him another dose of coumadin today and repeat INR tomorrow (goal INR: 2.5 to 3.5) DVT PPx: Heparin bridge, restarting coumadin Diet: NPO for Abd/CT w/PO contrast today, will advance diet per surgery recs Code: Full code Problem List: 1. Perforated sigmoid colon 2. Acute diverticulitis Pain Ratin Pain Location: lower abdomen Pain Goal: Pain 4 or less Pain Plan: morphine 2mg PRN Tomorrow's Labs & Rationales: cbc bep
--- NOTE | 2016-11-26 08:24 | PN- Att Addend ---
Attending Addendum Attending Brief Note atient seen and examined. Plan of care discussed with the medical team and the patient. Available lab work and radiology test reports were reviewed. Patient feels well and denies any recent fever or chills. He reports the mild to moderate lower abdominal pain. He also reports frequent urination. Note pt is NPO for CT abd today. Vital Signs Date Time Temp Pulse Resp B/P B/P Pulse O2 O2 Flow FiO2 Mean Ox Delivery Rate 11/26 0719 98.0 72 18 152/84 98 CPAP 11/25 2120 98.7 88 20 140/70 96 11/25 1425 98.2 68 20 122/80 96 Intake & Output 11/26 1600 11/26 0800 11/26 0000 Intake Total 520 350 Output Total Balance 520 350 Intake, IV 400 350 Intake, Oral 120 Number 1 Bowel Movements Exam: General: Patient awake alert oriented without any distress CVS: S1 plus S2 without any murmur or gallops Chest: Few scattered crepitation without any wheeze. There is no respiratory distress. Abdomen: Soft with moderate tenderness lower abdomen, bowel sound present, no guarding or rebound HOST AND HOSTESS: Awake alert oriented without any focal neuro deficit and follows command appropriately Extremities: No edema; no clubbing or cyanosis noted Laboratory Tests 11/26 11/26 11/26 1030 0640 0638 Chemistry Sodium (137 - 145 mmol/L) 136 L Potassium (3.5 - 5.1 mmol/L) 3.5 Chloride (98 - 107 mmol/L) 102 Carbon Dioxide (22 - 30 mmol/L) 23 Anion Gap (5 - 16) 11 BUN (9 - 20 mg/dL) 5 L Creatinine (0.7 - 1.2 mg/dL) 0.6 L Estimated GFR (>60 ml/min) > 60 BUN/Creatinine Ratio (7 - 25 %) 8.3 Coagulation PT (9.4 - 12.5 SEC) 22.4 H INR (0.90 - 1.17) 2.15 H APTT (25 - 37 SEC) 94 H Hematology CBC w Diff NO MAN DIFF REQ WBC (4.8 - 10.8 /CUMM) 8.6 RBC (4.70 - 6.10 /CUMM) 4.05 L Hgb (14.0 - 18.0 G/DL) 13.6 L Hct (42 - 52 %) 39.0 L MCV (80.0 - 94.0 FL) 96.2 H MCH (27.0 - 31.0 PG) 33.4 H RDW (11.5 - 14.5 %) 13.2 Plt Count (130 - 400 /CUMM) 257 MPV (7.4 - 10.4 FL) 7.1 L Gran % (42.2 - 75.2 %) 62.5 Lymphocytes % (20.5 - 51.1 %) 21.0 Monocytes % (1.7 - 9.3 %) 12.6 H Eosinophils % (0 - 5 %) 3.5 Basophils % (0.0 - 2.0 %) 0.4 Absolute Granulocytes (1.4 - 6.5 /CUMM) 5.4 Absolute Lymphocytes (1.2 - 3.4 /CUMM) 1.8 Absolute Monocytes (0.10 - 0.60 /CUMM) 1.1 H Absolute Eosinophils (0.0 - 0.7 /CUMM) 0.3 Absolute Basophils (0.0 - 0.2 /CUMM) 0 PUBS MCHC (33.0 - 37.0 G/DL) 34.8 11/26 11/25 0130 1757 Coagulation APTT (25 - 37 SEC) > 120 *H [address] abd pending today Assessment * Acute diverticulitis sigmoid colon * Microperforation related to acute diverticulitis * Prosthetic heart valve [facility] Plan * Continue current IV antibiotics * Increase ambulation * Increase oral liquid intake * If okay with surgery and CT shows improvement, we will like to advance diet * We'll plan to switch antibiotics to oral tomorrow * Possible discharge in next 1-2 days
[2016-11-26 08:42] LABS: PT 22.4 SEC (9.4-12.5)
[2016-11-26 09:01] LABS: ABSOLUTE BASOPHIL COUNT 0 /CUMM (0.0-0.2); ABSOLUTE EOSINOPHIL COUNT 0.3 /CUMM (0.0-0.7); ABSOLUTE GRANULOCYTE CT 5.4 /CUMM (1.4-6.5); ABSOLUTE LYMPH COUNT 1.8 /CUMM (1.2-3.4); ABSOLUTE MONOCYTE COUNT 1.1 /CUMM (0.10-0.60); BASOPHIL % 0.4 % (0.0-2.0); EOSINOPHIL % 3.5 % (0-5); GRANULOCYTE % 62.5 % (42.2-75.2); MEAN CORPUSCULAR HGB 33.4 PG (27.0-31.0); MEAN CORPUSCULAR HGB CONC 34.8 G/DL (33.0-37.0); MEAN CORPUSCULAR VOLUME 96.2 FL (80.0-94.0); MEAN PLATELET VOLUME 7.1 FL (7.4-10.4); PLATELET COUNT 257 /CUMM (130-400); RBC DISTRIBUTION WIDTH 13.2 % (11.5-14.5); RED BLOOD CELL CT 4.05 /CUMM (4.70-6.10); WHITE BLOOD CELL COUNT 8.6 /CUMM (4.8-10.8)
--- NOTE | 2016-11-26 10:21 | PN- General Surgery ---
See Addendum Subjective Subjective: Patient continues to complain of abdominal pain in the left lower quadrant and suprapubic region. He denies any nausea, vomiting, fever chills or night sweats. He continues to pass flatus and incontience related to passing flatus. He states he is ambulating frequently in the halls without difficulty. Objective Vital Signs and I&Os Vital Signs Date Time Temp Pulse Resp B/P B/P Pulse O2 O2 Flow FiO2 Mean Ox Delivery Rate 11/26 0719 98.0 72 18 152/84 98 CPAP 11/25 2120 98.7 88 20 140/70 96 11/25 1425 98.2 68 20 122/80 96 Intake & Output 11/26 1600 11/26 0800 11/26 0000 11/25 1600 11/25 0800 11/25 0000 Intake Total 918 534 3269.5 1020 1288.5 Output Total Balance 367 808 1133.5 1020 1288.5 Intake, IV 400 350 658.5 920 808.5 Intake, Oral 120 750 100 480 Number 1 3 2 Bowel Movements Physical Exam: General: Patient resting comfortably in bed, awake and alert and pleasant in no acute distress. Abdomen: Soft and obese. Bowel sounds present. He is dull to percussion and tender to palpation in the suprapubic region and LLQ with voluntary guarding. Ext: No edema or calf tenderness bilaterally. Current Medications: Current Medications Sig/Pricila Start time Last Medication Dose Route Stop Time Status Admin Atenolol 25 MG DAILY 11/22 1833 11/25 PO 0808 Ceftriaxone Sodium 1,000 MG Q24H 11/21 2345 11/26 IV 0020 Heparin Sodium 3,600 UNIT ONCE ONE 11/25 2029 DC 11/25 (Porcine) IV 11/25 Heparin Sodium 25,000 UNIT Q24H 11/21 0115 11/25 (Porcine) IV 1940 Sodium Chloride 500 ML Metronidazole 500 MG IQ8 11/21 0000 11/26 N/A 1 UNIT IV 0855 Morphine Sulfate 2 MG Q2P PRN 11/21 1100 11/26 IV 0132 Patient Medication 1 ED .STK-MED ONE 11/25 1405 IN Teaching ED 11/25 1406 Potassium Chloride 20 MEQ Q13H 11/22 1115 IN 11/25 Sodium Chloride 1,000 ML IV 0008 Sodium Chloride 1,000 ML Q10H 11/26 0930 AC IV Warfarin Sodium 7.5 MG COUMADIN 1700 ONE 11/25 1700 DC 11/25 PO 11/25 1701 5030 Results Last 48 Hours of Labs: Laboratory Tests 11/26 11/26 11/26 0640 0638 0130 Chemistry Sodium (137 - 145 mmol/L) 136 L Potassium (3.5 - 5.1 mmol/L) 3.5 Chloride (98 - 107 mmol/L) 102 Carbon Dioxide (22 - 30 mmol/L) 23 Anion Gap (5 - 16) 11 BUN (9 - 20 mg/dL) 5 L Creatinine (0.7 - 1.2 mg/dL) 0.6 L Estimated GFR (>60 ml/min) > 60 BUN/Creatinine Ratio (7 - 25 %) 8.3 Coagulation PT (9.4 - 12.5 SEC) 22.4 H INR (0.90 - 1.17) 2.15 H APTT (25 - 37 SEC) > 120 *H Hematology CBC w Diff NO MAN DIFF REQ WBC (4.8 - 10.8 /CUMM) 8.6 RBC (4.70 - 6.10 /CUMM) 4.05 L Hgb (14.0 - 18.0 G/DL) 13.6 L Hct (42 - 52 %) 39.0 L MCV (80.0 - 94.0 FL) 96.2 H MCH (27.0 - 31.0 PG) 33.4 H RDW (11.5 - 14.5 %) 13.2 Plt Count (130 - 400 /CUMM) 257 MPV (7.4 - 10.4 FL) 7.1 L Gran % (42.2 - 75.2 %) 62.5 Lymphocytes % (20.5 - 51.1 %) 21.0 Monocytes % (1.7 - 9.3 %) 12.6 H Eosinophils % (0 - 5 %) 3.5 Basophils % (0.0 - 2.0 %) 0.4 Absolute Granulocytes (1.4 - 6.5 /CUMM) 5.4 Absolute Lymphocytes (1.2 - 3.4 /CUMM) 1.8 Absolute Monocytes (0.10 - 0.60 /CUMM) 1.1 H Absolute Eosinophils (0.0 - 0.7 /CUMM) 0.3 Absolute Basophils (0.0 - 0.2 /CUMM) 0 PUBS MCHC (33.0 - 37.0 G/DL) 34.8 11/25 11/25 11/25 1757 0815 0815 Chemistry Sodium (137 - 145 mmol/L) 135 L Potassium (3.5 - 5.1 mmol/L) 3.7 Chloride (98 - 107 mmol/L) 104 Carbon Dioxide (22 - 30 mmol/L) 19 L Anion Gap (5 - 16) 13 BUN (9 - 20 mg/dL) 4 L Creatinine (0.7 - 1.2 mg/dL) 0.6 L Estimated GFR (>60 ml/min) > 60 BUN/Creatinine Ratio (7 - 25 %) 6.7 L Coagulation PT (9.4 - 12.5 SEC) 18.2 H INR (0.90 - 1.17) 1.74 H APTT (25 - 37 SEC) 51 H Cancelled 74 H Hematology CBC w Diff NO MAN DIFF REQ WBC (4.8 - 10.8 /CUMM) 10.1 RBC (4.70 - 6.10 /CUMM) 4.04 L Hgb (14.0 - 18.0 G/DL) 13.6 L Hct (42 - 52 %) 39.2 L MCV (80.0 - 94.0 FL) 97.1 H MCH (27.0 - 31.0 PG) 33.6 H RDW (11.5 - 14.5 %) 13.0 Plt Count (130 - 400 /CUMM) 239 MPV (7.4 - 10.4 FL) 7.1 L Gran % (42.2 - 75.2 %) 67.8 Lymphocytes % (20.5 - 51.1 %) 17.1 L Monocytes % (1.7 - 9.3 %) 10.8 H Eosinophils % (0 - 5 %) 3.8 Basophils % (0.0 - 2.0 %) 0.5 Absolute Granulocytes (1.4 - 6.5 /CUMM) 6.9 H Absolute Lymphocytes (1.2 - 3.4 /CUMM) 1.7 Absolute Monocytes (0.10 - 0.60 /CUMM) 1.1 H Absolute Eosinophils (0.0 - 0.7 /CUMM) 0.4 Absolute Basophils (0.0 - 0.2 /CUMM) 0 PUBS MCHC (33.0 - 37.0 G/DL) 34.6 11/24 1924 Coagulation APTT (25 - 37 SEC) 68 H Assessment/Plan Assessment/Plan This is a 51-year-old male with history of [facility] valve on Coumadin who is hospital day #5 admitted with sigmoid diverticulitis with microperforation. He remains tender on examination. CT scan of the abdomen and pelvis has been ordered to reassess his microperforation. Meanwhile, continue with conservative management. Continue with IV antibiotics in the form of a ceftriaxone an Flagyl. We will follow up on imaging and make further recommendations. All other medical management per the primary team. We will continue to closely follow. Patient discussed with Dr. Junior who is in agreement. Problem List: 1. Acute diverticulitis 2. Perforated sigmoid colon 3. History of artificial heart valve Core Measures/Miscellaneous Venous Thromboembolism VTE Risk Factors: Age > 40 VTE Contraindications: No Contraindications VTE Diagnosis: No VTE Type: NONE VTE Confirmed by (Test): NONE Beta Gabino Is Beta Gabino a Home Med? No Antibiotics Is Patient on Antibiotics? Yes If Yes: infection
[2016-11-26 11:28] LABS: PTT 94 SEC (25-37)
--- NOTE | 2016-11-26 13:21 | CT SCAN REPORT ---
EXAMINATION: CT ABDOMEN AND PELVIS WITHOUT CONTRAST CLINICAL INFORMATION: Abdominal pain. Previous CT findings. Perforated sigmoid diverticulitis. COMPARISON: A scan of the abdomen and pelvis dated 10/21/2016. TECHNIQUE: Multidetector CT volumetric acquisition of the abdomen and pelvis was performed after the administration of 900 mL of oral Redicat barium contrast. The data set was reformatted in the sagittal and coronal planes and reviewed on an independent workstation. DLP: 477.45 mGy-cm. FINDINGS: LOWER CHEST: New small bilateral pleural effusions. Associated dependent atelectasis in the lung bases similar to prior exam. LIVER, GALLBLADDER, BILIARY TREE: Liver normal size and attenuation. No focal cystic or solid mass on noncontrast imaging. No intra-or extrahepatic ductal dilatation. Gallbladder well distended and within normal limits. PANCREAS: Normal. No ductal dilatation, mass, or surrounding stranding. SPLEEN: Normal size and appearance. Splenic vein patent. ADRENAL GLANDS AND KIDNEYS: Adrenal glands normal. Kidneys bilaterally symmetric in size and function. No focal mass, hydronephrosis, nephrolithiasis or perinephric stranding. URETERS AND BLADDER: Ureters decompressed and unremarkable. Bladder partially distended and unremarkable. PELVIC ORGANS: Unremarkable. GASTROINTESTINAL TRACT: Again seen is an approximately 8 cm long segment of abnormally thick-walled and edematous sigmoid colon seen in region of moderate diverticulosis. There is surrounding mesenteric edema seen, and there is now a well-formed approximately 3.0 x 2.2 cm fluid collection with internal air seen along the mesenteric border of the inflamed sigmoid, suspicious for perforated diverticulitis with abscess formation (series 2, image 61). Other small locules of extraluminal free air are also noted, and there is surrounding edema which is seen extending anteriorly into the lower omentum and around an adjacent small bowel loop, which shows mild distention and wall thickening, consistent with secondary ileus. Of note, the orally administered contrast does extend through the inflamed segment into the rectum and no evidence of contrast extravasation is seen. Bowel loops otherwise unremarkable. Appendix in right lower quadrant and not visualized. ABDOMINAL WALL: There is a moderate-sized fat-containing umbilical hernia and bilateral small fat-containing direct inguinal hernias. LYMPHOVASCULAR STRUCTURES: Abdominal aorta normal in caliber. Moderate atherosclerotic calcifications of the aorta are noted. No periaortic collections. There are several scattered periportal, mesenteric and retroperitoneal lymph nodes, without pathologic enlargement. No abdominal or pelvic adenopathy or free fluid collection. [place] are seen in both inguinal regions. BONES: Median sternotomy wires partially included. Moderate degenerative disc disease at the lumbosacral junction and mild grade 1 anterolistheses of L4 on 5 again seen, unchanged. IMPRESSION: 1. Perforated sigmoid diverticulitis is again noted with free air and interval development of a small 3.0 x 2.2 cm mesenteric abscess collection. 2. New small bilateral pleural effusions. Associated bibasilar atelectasis again noted. 3. Moderate-sized fat-containing umbilical hernia and fat-containing direct inguinal hernias. 4. Moderate atherosclerotic calcifications of the aorta.
[2016-11-26 14:18] VITALS: BP 120/68
--- NOTE | 2016-11-26 15:46 | PN- Student ---
Subjective Subjective: S: Patient is a 51 y-o male diagnosed with micro-perforated diverticulitis, he has a history of [facility] Malcolm (on Coumadin), HTN, is on hospital day #5. This morning, patient still presenting abdominal pain, but this time is more localized in Suprapubic region and LLQ. He described as pressure and sharp pain, comes and goes with no fevers, diarrhea, constipation, vomits, SOB or chest pain. Patient noticed improvement in his symptoms since he can seat calmly now without severe abdominal pain. The pain right now is 4/10, last BM was yesterday morning, he is passing gasses and no urinary problems. Patient is NPO for Abd/ Pelvis CT Scan with PO contrast. Current Medications Sig/Pricila Start time Last Medication Dose Route Stop Time Status Admin Atenolol 25 MG DAILY 11/22 1833 AC 11/26 PO 1259 Ceftriaxone Sodium 1,000 MG Q24H 11/21 2345 11/26 IV 0020 Heparin Sodium 3,600 UNIT ONCE ONE 11/25 2030 DC 11/25 (Porcine) IV 11/25 2030 2030 Heparin Sodium 25,000 UNIT Q24H 11/21 0115 11/26 (Porcine) IV 1043 Sodium Chloride 500 ML Metronidazole 500 MG IQ8 11/21 0000 AC 11/26 N/A 1 UNIT IV 0855 Morphine Sulfate 2 MG Q2P PRN 11/21 1100 AC 11/26 IV 1300 Sodium Chloride 1,000 ML Q10H 11/26 0930 11/26 IV 1043 Warfarin Sodium 7.5 MG COUMADIN 1700 ONE 11/25 1700 DC 11/25 PO 11/25 1701 1859 Review of Systems Constitutional: Denies: diaphoresis, fever, weakness, weigth loss HEENT: Denies: blurred vision, double vision, visual changes, neck pain or trouble swallowin. Cardiovascular: Denies: chest pain, edema, palpitations Respiratory: Denies: cough, SOB, hemoptysis, orthopnea. Genitourinary: Reports: suprapubic pain when bladder full, and sometime problems retaining urine. Denies: discharge, dysuria, hematuria. Gastrointestinal: Reports: Abdomianal pain. Denies: hematochezia or bright red on stool, diarrhea, constipation, Musculoskeletal: Denies: back pain, gout, joint swelling. Skin: Denies: change in skin color, change in hair/nails, dryness. Neurological/Psychological: Denies: ataxia, cognitive dysfunction, anxiety Hematologic/Endocrine: Denies: bruising, bleeding. Objective Objective: Vital Signs Date Time Temp Pulse Resp B/P B/P Pulse O2 O2 Flow FiO2 Mean Ox Delivery Rate 11/26 1418 98.5 60 20 120/68 96 11/26 1259 66 152/86 11/26 0719 98.0 72 18 152/84 98 CPAP 11/25 2120 98.7 88 20 140/70 96 Intake & Output 11/26 1600 11/26 0800 11/26 0000 Intake Total 864 520 350 Output Total Balance 864 520 350 Intake, IV 804 400 350 Intake, Oral 60 120 Number 2 1 Bowel Movements Physical Exam General Appearance Alert, Aware and Oriented X3, Cooperative, No Acute Distress. Patient was calm and lying flat on bed. HEENT Atraumatic, PERRL, EOMI, no trachea deviation, no tenderness, no lymphadenopathy. Cardiovascular Pulse RRR, Apical impulse in 5 Intercostal Space MCL, Normal JVD, Normal Carotid Pulse, No Carotid Bruits, Normal S1 and loud S2 heard (mechanical aortic valve), No Murmurs or additional sounds. Lungs Normal chest expansion, CTOB, Normal air movement Abdomen Symmetrical shape, distended, no bruises or masses noted. BS+, tympanic percussion, guarding and tender to light palpation in LLQ and Suprapubic region. No rebound tenderness. Neurological Normal Speech and cognition, No sensory or motor impairment, Normal gait and posture. Extremities No Edema, Normal Pulses x4. Results Results: Laboratory Tests 11/26/16 1030: APTT 94 H 11/26/16 0640: Anion Gap 11, Estimated GFR > 60, BUN/Creatinine Ratio 8.3, PT 22.4 H, INR 2.15 H 11/26/16 0638: CBC w Diff NO MAN DIFF REQ, RBC 4.05 L, MCV 96.2 H, MCH 33.4 H, RDW 13.2, MPV 7.1 L, Gran % 62.5, Lymphocytes % 21.0, Monocytes % 12.6 H, Eosinophils % 3.5, Basophils % 0.4, Absolute Granulocytes 5.4, Absolute Lymphocytes 1.8, Absolute Monocytes 1.1 H, Absolute Eosinophils 0.3, Absolute Basophils 0, PUBS MCHC 34.8 11/26/16 0130: APTT > 120 *H 11/25/16 1757: APTT 51 H Diganostic Data: CT: ABD/Pelvis with PO Contrast: 11/26/16 13:21 IMPRESSION: 1. Perforated sigmoid diverticulitis is again noted with free air and interval development of a small 3.0 x 2.2 cm mesenteric abscess collection. 2. New small bilateral pleural effusions. Associated bibasilar atelectasis again noted. 3. Moderate-sized fat-containing umbilical hernia and fat-containing direct inguinal hernias. 4. Moderate atherosclerotic calcifications of the aorta. SIGNED BY: VICTORINA VALLES,MOMO Gordon Assessment/Plan Assessment: A: A 51 y-o male patient with micro-perforated diverticulitis and history of [facility] Valve and HTN in on his hospital day #5. Patient still presenting with abdominal pain localize in LLQ and Suprapubic region. Patient has no signs of inflammation like fevers, leukocytosis or malaise. A PT: 22.4, INR: 2.15 and PTT : 94 after Coumadin and Heparin bridge. A second Abd/Pelvis CT scan shows a perforated sigmoid diverticulitis with free air with no changes and interval development of a small 3.0 x 2.2 cm mesenteric abscess collection. Problem List: 1. Micro-perforated Sigmoid Diverticulitis A: This is the most likely diagnosis because patient presents with abdominal pain and Sigmoid Diverticulitis with free abdominal air showed on Abd/Pelvis CT scan. The surgery team was consulted and they evaluated him. This types of complication of Divereticulitis, used to be treated surgically due to high risk of peritonitis and sepsis. This case is a micro-perforation causing localized inflammation that may progress to localized abscess, serenity peritonitis (purulent or feculent), stricture, or fistulization to adjacent tissue. B: Plan: Patient will be manage conservatively with IVF, Ceftriaxone 1000mg Q24H IV and Metronidazole 500mg IQ8 IV. 2. Mesenteric Abscess Collection: A: Patient presents today with a new finding on the Abd/Pelvis CT Scan, a small 3.0 x 2.2 cm mesenteric abscess collection. This is a most likely complication of Diverculitis and inflammatory process. B: Plan: Usually a plan for drainage percutaneously or surgically for >4cm abscess in Diverticulitis patient. This patient has an abscess of 3.0cm X 2.2cm but he also has the comorbidity of perforation. A surgical consult was placed to evaluate the case. He may need a percutaneous CT guided drainage of abscess. Watch CBC and BEP daily for inflammatory leukocytosis and electrolytes imbalance. 3. [facility] Valve A. Patient has a history of [facility] Valve. Patient was on Coumadin and Heparin bridge, levels of PT: 22.4, INR: 2.15 and PTT: 94 were released. B. Keep anticoagulation treatment. Warfarin 7.5mg PO, Heparin 3600units IV, Heparin 98593 IV Q24H. Watch INR, PT and PTT daily.
[2016-11-26 19:56] LABS: PTT 87 SEC (25-37)
[2016-11-26 22:45] VITALS: BP 132/80
[2016-11-27 06:30] VITALS: BP 146/84
--- NOTE | 2016-11-27 07:25 | PN- Housestaff ---
Subjective Follow-up For: Sigmoid Diverticulitis, Perforated Mechanical Valve on Coumadin Subjective: Pt states he is doing well today. Has been up and walking around. Still requiring pain meds around the clock for abdominal pain. Has been tolerating full liquid meals. Pt is anxious to go home. No acute events overnight Review of Systems Constitutional: Denies: no symptoms. Cardiovascular: Denies: no symptoms. Respiratory: Denies: no symptoms. Gastrointestinal: Reports: abdominal pain, bloating. Denies: constipation, diarrhea, nausea, bloody stool, vomiting. Genitourinary: Denies: no symptoms. Objective Last 24 Hrs of Vital Signs/I&O Vital Signs Date Time Temp Pulse Resp B/P B/P Pulse O2 O2 Flow FiO2 Mean Ox Delivery Rate 11/27 1431 98.7 62 20 140/78 97 11/27 1032 76 132/80 11/27 0630 98.7 68 20 146/84 98 Room Air 11/26 2245 98.0 63 20 132/80 97 Room Air Intake & Output 11/27 1600 11/27 0800 11/27 0000 Intake Total 840 Output Total Balance 840 Intake, IV 280 Intake, Oral 560 Number 2 Bowel Movements Physical Exam General Appearance: Alert, Oriented X3, Cooperative, No Acute Distress HEENT: Atraumatic, EOMI, Mucous Membr. moist/pink Cardiovascular: Regular Rate, Normal S1, Normal S2 Lungs: Clear to Auscultation Abdomen: Normal Bowel Sounds, Soft, No Tenderness Extremities: No Edema, Normal Pulses Assessment/Plan Assessment: 51-year-old male with a past history of hypertension, aortic aneurysm, [facility] 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 Patient was admitted to the general medicine floor for managment of the followin. Acute Sigmoid Diverticulitis, Perforated - on admission: pt afebrile with WBC of 19.6, lactate: 0.9 - Abdomen CT: Perforated sigmoid diverticulitis. No drainable fluid collections - today: continues to remain afebrile with trending down of WBC: 8.5 today - As per surgery will continue conservative management with medication. - will transition from IV metronidazole & ceftriaxone to PO metronidazole & ciprofloxacin - will continue to monitor vitals, trend WBC - Repeat CT Abd/Pelvis w/PO contrast today: revealed Perforated sigmoid diverticulitis is again noted with free air and interval development of a small 3.0 x 2.2 cm mesenteric abscess collection * Surgery has seen pt and recommend continued conservative management with no intervention at this time * Per surgery - pt's diet can be advanced and is stable for discharge home 2. Hypokalemia-resolved - K+: 3.7 today - will continue to monitor and replete as needed 3. History of artificial heart valve - history of AA with [facility] valve replacement. - on heparin drip - INR today: 2.38. Will give him 10mg of coumadin today and repeat INR tomorrow (goal INR: 2.5 to 3.5) DVT PPx: Heparin bridge, restarting coumadin Diet: Regular diet Code: Full code Problem List: 1. Perforated sigmoid colon Pain Ratin Pain Location: lower abdomen Pain Goal: Pain 4 or less Pain Plan: transition to oral pain meds in anticipation of discharge tomorrow Tomorrow's Labs & Rationales: cbc bep inr
--- NOTE | 2016-11-27 08:15 | PN- Att Addend ---
Attending Addendum Attending Brief Note Patient seen and examined. Plan of care discussed with the medical team and the patient. Available lab work and radiology test reports were reviewed. Patient feels well and denies any recent fever or chills. He reports the mild lower abdominal pain. Vital Signs Date Time Temp Pulse Resp B/P B/P Pulse O2 O2 Flow FiO2 Mean Ox Delivery Rate 11/27 0630 98.7 68 20 146/84 98 Room Air 11/26 2245 98.0 63 20 132/80 97 Room Air 11/26 1418 98.5 60 20 120/68 96 11/26 1259 66 152/86 Exam: General: Patient awake alert oriented without any distress CVS: S1 plus S2 without any murmur or gallops Chest: Few scattered crepitation without any wheeze. There is no respiratory distress. Abdomen: Soft with moderate tenderness lower abdomen, bowel sound present, no guarding or rebound MANAGER RFID: Awake alert oriented without any focal neuro deficit and follows command appropriately Extremities: No edema; no clubbing or cyanosis noted Laboratory Tests 11/27 11/26 0826 1800 Chemistry Sodium (137 - 145 mmol/L) 137 Potassium (3.5 - 5.1 mmol/L) 3.7 Chloride (98 - 107 mmol/L) 104 Carbon Dioxide (22 - 30 mmol/L) 21 L Anion Gap (5 - 16) 12 BUN (9 - 20 mg/dL) 5 L Creatinine (0.7 - 1.2 mg/dL) 0.6 L Estimated GFR (>60 ml/min) > 60 BUN/Creatinine Ratio (7 - 25 %) 8.3 Coagulation PT (9.4 - 12.5 SEC) 24.8 H INR (0.90 - 1.17) 2.38 H APTT (25 - 37 SEC) > 120 *H 87 H Hematology CBC w Diff NO MAN DIFF REQ WBC (4.8 - 10.8 /CUMM) 8.5 RBC (4.70 - 6.10 /CUMM) 4.24 L Hgb (14.0 - 18.0 G/DL) 14.1 Hct (42 - 52 %) 40.7 L MCV (80.0 - 94.0 FL) 96.0 H MCH (27.0 - 31.0 PG) 33.3 H RDW (11.5 - 14.5 %) 13.3 Plt Count (130 - 400 /CUMM) 301 MPV (7.4 - 10.4 FL) 6.7 L Gran % (42.2 - 75.2 %) 62.6 Lymphocytes % (20.5 - 51.1 %) 22.1 Monocytes % (1.7 - 9.3 %) 10.7 H Eosinophils % (0 - 5 %) 4.0 Basophils % (0.0 - 2.0 %) 0.6 Absolute Granulocytes (1.4 - 6.5 /CUMM) 5.3 Absolute Lymphocytes (1.2 - 3.4 /CUMM) 1.9 Absolute Monocytes (0.10 - 0.60 /CUMM) 0.9 H Absolute Eosinophils (0.0 - 0.7 /CUMM) 0.3 Absolute Basophils (0.0 - 0.2 /CUMM) 0 PUBS MCHC (33.0 - 37.0 G/DL) 34.6 CT abd/Pelvis 1. Perforated sigmoid diverticulitis is again noted with free air and interval development of a small 3.0 x 2.2 cm mesenteric abscess collection. 2. New small bilateral pleural effusions. Associated bibasilar atelectasis again noted. 3. Moderate-sized fat-containing umbilical hernia and fat-containing direct inguinal hernias. 4. Moderate atherosclerotic calcifications of the aorta. Assessment * Acute diverticulitis sigmoid colon * Pericolonic abscess on CAT scan * Microperforation related to acute diverticulitis * Prosthetic heart valve [facility]'s Plan * In general intubated asked to oral Cipro and Flagyl today * Increase ambulation * Increase oral liquid intake * advance diet * Possible discharge tomorrow * Increase Coumadin dose 10 mg daily; check INR tomorrow; continue IV heparin for now INR is close to 3
--- NOTE | 2016-11-27 08:28 | PN- Student ---
Subjective Subjective: S: Patient is a 51 y-o male diagnosed with micro-perforated diverticulitis and small mesenteric abscess, he has a history of [facility] Heart Valve (on Coumadin), HTN, is on hospital day #6. This morning, patient presents with less abdominal pain, localized in Suprapubic region and LLQ. Patients reports no fevers, diarrhea, constipation, vomits, SOB, palpitations or chest pain. Patient noticed improvement in his symptoms since he can seat calmly now without severe abdominal pain. The pain right now is 4/10, last BM was yesterday morning, he is passing gasses and no urinary problems. Current Medications Sig/Pricila Start time Last Medication Dose Route Stop Time Status Admin Atenolol 25 MG DAILY 11/22 1833 AC 11/26 PO 1259 Ceftriaxone Sodium 1,000 MG Q24H 11/21 2345 AC 11/27 IV 0009 Heparin Sodium 25,000 UNIT Q24H 11/21 0115 AC 11/27 (Porcine) IV 0023 Sodium Chloride 500 ML Metronidazole 500 MG IQ8 11/21 0000 AC 11/27 N/A 1 UNIT IV 0009 Morphine Sulfate 2 MG Q2P PRN 11/21 1100 AC 11/27 IV 0146 Potassium Chloride 10 MEQ ONCE ONE 11/26 1700 CAN PO 11/26 1701 Sodium Chloride 1,000 ML Q10H 11/26 0930 DC 11/26 IV 1043 Warfarin Sodium 7.5 MG COUMADIN 1700 ONE 11/26 1700 DC 11/26 PO 11/26 1701 1823 Review of Systems Constitutional: Denies: diaphoresis, fever, weakness, weigth loss HEENT: Denies: blurred vision, double vision, visual changes, neck pain or trouble swallowing. Cardiovascular: Denies: chest pain, edema, palpitations Respiratory: Denies: cough, SOB, hemoptysis, orthopnea. Genitourinary: Reports: suprapubic pain when bladder full, and sometime problems retaining urine. Denies: discharge, dysuria, hematuria. Gastrointestinal: Reports: Abdomianal pain. Denies: hematochezia or bright red on stool, diarrhea, constipation, Musculoskeletal: Denies: back pain, gout, joint swelling. Skin: Denies: change in skin color, change in hair/nails, dryness. Neurological/Psychological: Denies: ataxia, cognitive dysfunction, anxiety Hematologic/Endocrine: Denies: bruising, bleeding. Objective Objective: Vital Signs Date Time Temp Pulse Resp B/P B/P Pulse O2 O2 Flow FiO2 Mean Ox Delivery Rate 11/27 0630 98.7 68 20 146/84 98 Room Air 11/26 2245 98.0 63 20 132/80 97 Room Air 11/26 1418 98.5 60 20 120/68 96 11/26 1259 66 152/86 Physical Exam General Appearance Alert, Awake and Oriented X3, Cooperative, No Acute Distress. Patient was calm and standing up watching outside the window. HEENT Atraumatic, PERRL, EOMI, no trachea deviation, no neck tenderness, no lymphadenopathy. Cardiovascular Pulse RRR, Apical impulse in 5 Intercostal Space in MCL, Normal JVD, Normal Carotid Pulse, No Carotid Bruits, Normal S1 and loud S2 heard ( mechanical aortic valve), No Murmurs or additional sounds. Lungs Normal chest expansion, CTOB, Normal air movement, No additional sounds Abdomen Symmetrical shape, distended, no bruises or masses noted. BS+, tympanic percussion, guarding and tender to light palpation in LLQ and Suprapubic region same as yesterday. No rebound tenderness. Neurological Normal Speech and cognition, No sensory or motor impairment, Normal gait and posture. Extremities No Edema, Normal Pulses x4. Results Results: Laboratory Tests 11/27 11/26 0826 1800 Chemistry Sodium (137 - 145 mmol/L) 137 Potassium (3.5 - 5.1 mmol/L) 3.7 Chloride (98 - 107 mmol/L) 104 Carbon Dioxide (22 - 30 mmol/L) 21 L Anion Gap (5 - 16) 12 BUN (9 - 20 mg/dL) 5 L Creatinine (0.7 - 1.2 mg/dL) 0.6 L Estimated GFR (>60 ml/min) > 60 BUN/Creatinine Ratio (7 - 25 %) 8.3 Coagulation PT (9.4 - 12.5 SEC) 24.8 H INR (0.90 - 1.17) 2.38 H APTT (25 - 37 SEC) > 120 *H 87 H Hematology CBC w Diff NO MAN DIFF REQ WBC (4.8 - 10.8 /CUMM) 8.5 RBC (4.70 - 6.10 /CUMM) 4.24 L Hgb (14.0 - 18.0 G/DL) 14.1 Hct (42 - 52 %) 40.7 L MCV (80.0 - 94.0 FL) 96.0 H MCH (27.0 - 31.0 PG) 33.3 H RDW (11.5 - 14.5 %) 13.3 Plt Count (130 - 400 /CUMM) 301 MPV (7.4 - 10.4 FL) 6.7 L Gran % (42.2 - 75.2 %) 62.6 Lymphocytes % (20.5 - 51.1 %) 22.1 Monocytes % (1.7 - 9.3 %) 10.7 H Eosinophils % (0 - 5 %) 4.0 Basophils % (0.0 - 2.0 %) 0.6 Absolute Granulocytes (1.4 - 6.5 /CUMM) 5.3 Absolute Lymphocytes (1.2 - 3.4 /CUMM) 1.9 Absolute Monocytes (0.10 - 0.60 /CUMM) 0.9 H Absolute Eosinophils (0.0 - 0.7 /CUMM) 0.3 Absolute Basophils (0.0 - 0.2 /CUMM) 0 PUBS MCHC (33.0 - 37.0 G/DL) 34.6 Diganostic Data: CT: ABD/Pelvis with PO Contrast: 11/26/16 13:21 IMPRESSION: 1. Perforated sigmoid diverticulitis is again noted with free air and interval development of a small 3.0 x 2.2 cm mesenteric abscess collection. 2. New small bilateral pleural effusions. Associated bibasilar atelectasis again noted. 3. Moderate-sized fat-containing umbilical hernia and fat-containing direct inguinal hernias. 4. Moderate atherosclerotic calcifications of the aorta. SIGNED BY: VICTORINA VALLES,MOMO Grodon Assessment/Plan Assessment: Assessment: A: A 51 y-o male patient with micro-perforated diverticulitis and history of [facility]'s prosthetic heart valve and HTN is on his hospital day #6. Patient still presenting with abdominal pain localize in LLQ and Suprapubic region. Patient has no signs of inflammation like fevers, leukocytosis or malaise. A PT: 24.8, INR: 2.38 and PTT: >120 after Coumadin and Heparin bridge. A second Abd/Pelvis CT scan shows a perforated sigmoid diverticulitis with free air with no changes and interval development of a small 3.0 x 2.2 cm mesenteric abscess collection. Problem List: 1. Micro-perforated Sigmoid Diverticulitis A: This is the most likely diagnosis because patient presents with abdominal pain and Sigmoid Diverticulitis with free abdominal air showed on Abd/Pelvis CT scan. The surgery team was consulted and they evaluated him. This types of complication of Divereticulitis, used to be treated surgically due to high risk of peritonitis and sepsis. This case is a micro-perforation causing localized inflammation that may progress to localized abscess, serenity peritonitis (purulent or feculent), stricture, or fistulization to adjacent tissue. B: Plan: Patient will be manage conservatively with IVF, Ceftriaxone 1000mg Q24H IV and Metronidazole 500mg IQ8 IV. A possible plan to discharge and change antibiotics to Metronidazole 250mg Q8 PO and Ciprofloxacin 500mgBID PO, encourage ambulation and good PO hydration. 2. Mesenteric Abscess Collection: A: Patient presented yesterday with a new finding on the Abd/Pelvis CT Scan, a small 3.0 x 2.2 cm mesenteric abscess collection. This is a most likely complication of Diverculitis and inflammatory process. B: Plan: Usually a plan for drainage percutaneously or surgically for >4cm abscess in Diverticulitis patient. This patient has an abscess of 3.0cm X 2.2cm but he also has the complication of perforation. Surgery team evaluated the case and agreed to keep conservative treatment. Possible plan to discharge, change to PO antibiotics, F/u as outpatient and need a new Abd/CT scan in a period of two weeks. Watch CBC and BEP in hospital stay daily for inflammatory leukocytosis and electrolytes imbalance. 3. [facility] Prosthetic Heart Valve A. Patient has a history of [facility] Heart Valve placement. Patient was on Coumadin and Heparin bridge, levels of PT: 24.8, INR: 2.38 and PTT:>120 were released. Patients with a history of Prosthetic Heart Valve, need therapeutic INR in between 2.5-3.5 with a goal of 3.0. B. Keep anticoagulation treatment. Warfarin 10mg PO, Heparin 44197 IV Q24H. Watch INR, PT and PTT daily.
[2016-11-27 09:05] LABS: PT 24.8 SEC (9.4-12.5)
[2016-11-27 09:09] LABS: ABSOLUTE BASOPHIL COUNT 0 /CUMM (0.0-0.2); ABSOLUTE EOSINOPHIL COUNT 0.3 /CUMM (0.0-0.7); ABSOLUTE GRANULOCYTE CT 5.3 /CUMM (1.4-6.5); ABSOLUTE LYMPH COUNT 1.9 /CUMM (1.2-3.4); ABSOLUTE MONOCYTE COUNT 0.9 /CUMM (0.10-0.60); BASOPHIL % 0.6 % (0.0-2.0); GRANULOCYTE % 62.6 % (42.2-75.2); HEMATOCRIT 40.7 % (42-52); MEAN CORPUSCULAR HGB 33.3 PG (27.0-31.0); MEAN CORPUSCULAR HGB CONC 34.6 G/DL (33.0-37.0); MEAN PLATELET VOLUME 6.7 FL (7.4-10.4); PLATELET COUNT 301 /CUMM (130-400); RBC DISTRIBUTION WIDTH 13.3 % (11.5-14.5); RED BLOOD CELL CT 4.24 /CUMM (4.70-6.10); WHITE BLOOD CELL COUNT 8.5 /CUMM (4.8-10.8)
[2016-11-27 09:27] LABS: PTT > 120 SEC (25-37)
[2016-11-27 14:31] VITALS: BP 140/78
[2016-11-27 17:07] LABS: PTT 89 SEC (25-37)
--- NOTE | 2016-11-27 20:14 | Discharge Summary ---
Visit Information Visit Dates Admission Date: 11/21/16 Hospital Course Course Attending Physician: PRACHI VALLES,RICHARD Primary Care Physician: WINNIE VALLES,VELMA Engel Consulting Request: Consulting Specialty: General Surgery Consulting Physician: Dr. Delgadillo Reason for Consult: Perforated Sigmoid Diverticulitis Hospital Course: 51-year-old male with a past history of hypertension, aortic aneurysm, [facility] 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 Patient was admitted to the general medicine floor for managment of the followin. Acute Sigmoid Diverticulitis, Perforated - on admission: pt was afebrile with WBC of 19.6, lactate: 0.9 - Abdomen CT: Perforated sigmoid diverticulitis. No drainable fluid collections - today: continues to remain afebrile with trending down of WBC: 8.5 today - As per surgery will continue conservative management with medication. - will transition from IV metronidazole & ceftriaxone to PO metronidazole & ciprofloxacin - will continue to monitor vitals, trend WBC - Repeat CT Abd/Pelvis w/PO contrast today: revealed Perforated sigmoid diverticulitis is again noted with free air and interval development of a small 3.0 x 2.2 cm mesenteric abscess collection * Surgery has seen pt and recommend continued conservative management with no intervention at this time * Per surgery - pt's diet can be advanced and is stable for discharge home 2. Hypokalemia-resolved - K+: 3.7 today - will continue to monitor and replete as needed 3. History of artificial heart valve - history of AA with [facility] valve replacement. - on heparin drip - INR today: 2.38. Will give him 10mg of coumadin today and repeat INR tomorrow (goal INR: 2.5 to 3.5) Allergies: Coded Allergies: No Known Allergies (11/20/16) Disposition Summary Disposition Principal Diagnosis: Sigmoid Diverticulitis, Perforated
[2016-11-27 21:59] VITALS: BP 130/60
[2016-11-28 05:23] LABS: PTT 118 SEC (25-37)
[2016-11-28 06:50] VITALS: BP 132/80
--- NOTE | 2016-11-28 07:29 | PN- Housestaff ---
Assessment/Plan Assessment: 51-year-old male with a past history of hypertension, aortic aneurysm, [facility] 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 Patient was admitted to the general medicine floor for managment of the followin. Acute Sigmoid Diverticulitis, Perforated - on admission: pt afebrile with WBC of 19.6, lactate: 0.9 - Abdomen CT: Perforated sigmoid diverticulitis. No drainable fluid collections - today: continues to remain afebrile with trending down of WBC: 8.5 today - As per surgery will continue conservative management with medication. - will transition from IV metronidazole & ceftriaxone to PO metronidazole & ciprofloxacin - will continue to monitor vitals, trend WBC - Repeat CT Abd/Pelvis w/PO contrast today: revealed Perforated sigmoid diverticulitis is again noted with free air and interval development of a small 3.0 x 2.2 cm mesenteric abscess collection * Surgery has seen pt and recommend continued conservative management with no intervention at this time * Per surgery - pt's diet can be advanced and is stable for discharge home 2. Hypokalemia-resolved - K+: 3.7 today - will continue to monitor and replete as needed 3. History of artificial heart valve - history of AA with [facility] valve replacement. - on heparin drip - INR today: 2.38. Will give him 10mg of coumadin today and repeat INR tomorrow (goal INR: 2.5 to 3.5) DVT PPx: Heparin bridge, restarting coumadin Diet: Regular diet Code: Full code Consulting Request: Consulting Specialty: General Surgery Consulting Physician: Dr. Delgadillo Reason for Consult: Perforated Sigmoid Diverticulitis
[2016-11-28 08:39] LABS: ABSOLUTE BASOPHIL COUNT 0 /CUMM (0.0-0.2); ABSOLUTE EOSINOPHIL COUNT 0.3 /CUMM (0.0-0.7); ABSOLUTE GRANULOCYTE CT 4.6 /CUMM (1.4-6.5); ABSOLUTE LYMPH COUNT 2.2 /CUMM (1.2-3.4); BASOPHIL % 0.5 % (0.0-2.0); GRANULOCYTE % 56.5 % (42.2-75.2); HEMATOCRIT 39.7 % (42-52); MEAN CORPUSCULAR HGB 33.3 PG (27.0-31.0); MEAN CORPUSCULAR HGB CONC 34.3 G/DL (33.0-37.0); MEAN CORPUSCULAR VOLUME 97.2 FL (80.0-94.0); MEAN PLATELET VOLUME 6.9 FL (7.4-10.4); PLATELET COUNT 305 /CUMM (130-400); RBC DISTRIBUTION WIDTH 13.4 % (11.5-14.5); RED BLOOD CELL CT 4.08 /CUMM (4.70-6.10); WHITE BLOOD CELL COUNT 8.2 /CUMM (4.8-10.8)
[2016-11-28 08:44] LABS: PT 24.7 SEC (9.4-12.5)
--- NOTE | 2016-11-28 10:37 | PN- Att Addend ---
Attending Addendum Attending Brief Note Patient seen and examined. Plan of care discussed with the medical team and the patient. Available lab work and radiology test reports were reviewed. Patient feels well and denies any recent fever or chills. He reports the mild left lower abdominal pain. He is tolerating his diet well. Denies any difficulty breathing or any chest pains. Vital Signs Date Time Temp Pulse Resp B/P B/P Pulse O2 O2 Flow FiO2 Mean Ox Delivery Rate 11/28 0931 64 140/78 11/28 0650 98.0 64 16 132/80 97 Room Air 11/27 2159 98.0 64 20 130/60 96 11/27 1431 98.7 62 20 140/78 97 Intake & Output 11/28 1600 11/28 0800 11/28 0000 Intake Total 1800 Output Total Balance 1800 Intake, IV 300 Intake, Oral 1500 Number 1 Bowel Movements Exam: General: Patient awake alert oriented without any distress CVS: S1 plus S2 without any murmur or gallops Chest: Few scattered crepitation without any wheeze. There is no respiratory distress. Abdomen: Soft with moderate tenderness lower abdomen, bowel sound present, no guarding or rebound FURNITURE FINISHER: Awake alert oriented without any focal neuro deficit and follows command appropriately Extremities: No edema; no clubbing or cyanosis noted Assessment * Acute diverticulitis sigmoid colon- clinically improving now on oral medication * Pericolonic abscess on CAT scan * Microperforation related to acute diverticulitis * Prosthetic heart valve [facility] Plan * Continue oral Cipro and Flagyl and complete total 14 days of antibiotic treatment * Increase Coumadin dose 8 mg daily; check INR tomorrow; patient to report INR to Dr. Alejandra tomorrow. DC heparin upon discharge. * Case discussed with Dr. Alejandra who was present in the room. Plans to discharge patient home today. Patient will need to follow-up with the Dr. Junior from surgery. Patient was told that he needs a follow-up CAT scan in about [address] Junior's office. * Total time spent in preparation for discharge plan, patient education, and CMR preparation was 40 minutes.
--- NOTE | 2016-11-28 10:58 | PN- Student ---
Subjective Subjective: S: Patient is a 51 y-o male diagnosed with micro-perforated diverticulitis and small mesenteric abscess, he has a history of [facility] Heart Valve (on Coumadin), HTN, is on hospital day #7. This morning, patient presents with less abdominal pain, localized in Suprapubic region and LLQ. Patients reports no fevers, diarrhea, constipation, vomits, SOB, palpitations or chest pain. Patient noticed improvement in his symptoms. The pain right now is 3/10, yesterday on the afternoon was worst after he ate (7/10), but improved after pain medication. Last BM was this morning at 5am, it was loose,mucoid, green and few amount, he is passing gasses and no urinary problems. Current Medications Sig/Pricila Start time Last Medication Dose Route Stop Time Status Admin Acetaminophen 1,000 MG Q6P PRN 11/27 1730 AC N/A 1 UNIT IV Atenolol 25 MG DAILY 11/22 1833 AC 11/28 PO 0931 Ciprofloxacin 500 MG BID 11/27 1000 AC 11/28 PO 12/01 0959 0931 Heparin Sodium 25,000 UNIT Q24H 11/21 0115 AC 11/27 (Porcine) IV 1629 Sodium Chloride 500 ML Metronidazole 250 MG Q8 11/27 1400 AC 11/28 PO 0559 Morphine Sulfate 2 MG Q2P PRN 11/21 1100 DC 11/27 IV 1542 Oxycodone HCl 5 MG Q4P PRN 11/28 1000 AC PO Oxycodone HCl 5 MG Q6P PRN 11/27 1715 DC 11/28 PO 0931 Oxycodone HCl 10 MG Q12 11/27 1715 DC 11/27 PO 2214 Patient Medication 1 ED ONE ONE 11/27 1400 MN 11/27 Teaching ED 11/27 1401 1416 Warfarin Sodium 10 MG COUMADIN 1700 ONE 11/27 1700 DC 11/27 PO 11/27 1701 1545 Review of Systems Constitutional: Denies: diaphoresis, fever, weakness, weight loss HEENT: Denies: blurred vision, double vision, visual changes, neck pain or trouble swallowing. Cardiovascular: Denies: chest pain, edema, palpitations Respiratory: Denies: cough, SOB, hemoptysis, orthopnea. Genitourinary: Denies: discharge, dysuria, hematuria, or bladder pressure pain. Gastrointestinal: Reports: Abdomianal pain. Denies: hematochezia or bright red on stool, diarrhea, constipation, Musculoskeletal: Denies: back pain, gout, joint swelling. Skin: Denies: change in skin color, change in hair/nails, dryness. Neurological/Psychological: Denies: ataxia, cognitive dysfunction, anxiety Hematologic/Endocrine: Denies: bruising, bleeding. Objective Objective: Last Vital Signs and I&O in 24 hours: Vital Signs Date Time Temp Pulse Resp B/P B/P Pulse O2 O2 Flow FiO2 Mean Ox Delivery Rate 11/28 0931 64 140/78 11/28 0650 98.0 64 16 132/80 97 Room Air 11/27 2159 98.0 64 20 130/60 96 11/27 1431 98.7 62 20 140/78 97 11/27 1032 76 132/80 Intake & Output 11/28 1600 11/28 0800 11/28 0000 Intake Total 1800 Output Total Balance 1800 Intake, IV 300 Intake, Oral 1500 Number 1 Bowel Movements Physical Exam General Appearance Alert, Awake and Oriented X3, Cooperative, No Acute Distress. Patient was calm lying on bed. HEENT Atraumatic, PERRL, EOMI, no trachea deviation, no neck tenderness, no lymphadenopathy. Cardiovascular Pulse RRR, Apical impulse in 5 Intercostal Space in MCL, Normal JVD, Normal Carotid Pulse, No Carotid Bruits, Normal S1 and loud S2 heard ( mechanical aortic valve), No Murmurs or additional sounds. Lungs Normal chest expansion, CTOB, Normal air movement, No additional sounds Abdomen Symmetrical shape, distended, no bruises or masses noted. BS+, tympanic percussion, guarding and tender to light palpation in LLQ and Suprapubic region, less tenderness than yesterday. No rebound tenderness. Neurological Normal Speech and cognition, No sensory or motor impairment, Normal gait and posture. Extremities No Edema, Normal Pulses x4. Results Results: Laboratory Tests 11/28/16 0630: Anion Gap 9, Estimated GFR > 60, BUN/Creatinine Ratio 7.5, PT 24.7 H, INR 2.37 H, CBC w Diff NO MAN DIFF REQ, RBC 4.08 L, MCV 97.2 H, MCH 33.3 H, RDW 13.4, MPV 6.9 L, Gran % 56.5, Lymphocytes % 27.1, Monocytes % 11.9 H, Eosinophils % 4.0, Basophils % 0.5, Absolute Granulocytes 4.6, Absolute Lymphocytes 2.2, Absolute Monocytes 1.0 H, Absolute Eosinophils 0.3, Absolute Basophils 0, PUBS MCHC 34.3 11/28/16 0430: APTT 118 *H 11/27/16 1630: APTT 89 H 11/27/16 0826: Anion Gap 12, Estimated GFR > 60, BUN/Creatinine Ratio 8.3, PT 24.8 H, INR 2.38 H, APTT > 120 *H, CBC w Diff NO MAN DIFF REQ, RBC 4.24 L, MCV 96.0 H, MCH 33.3 H, RDW 13.3, MPV 6.7 L, Gran % 62.6, Lymphocytes % 22.1, Monocytes % 10.7 H, Eosinophils % 4.0, Basophils % 0.6, Absolute Granulocytes 5.3, Absolute Lymphocytes 1.9, Absolute Monocytes 0.9 H, Absolute Eosinophils 0.3, Absolute Basophils 0, PUBS MCHC 34.6 11/26/16 1800: APTT 87 H 11/26/16 1030: APTT 94 H 11/26/16 0640: Anion Gap 11, Estimated GFR > 60, BUN/Creatinine Ratio 8.3, PT 22.4 H, INR 2.15 H 11/26/16 0638: CBC w Diff NO MAN DIFF REQ, RBC 4.05 L, MCV 96.2 H, MCH 33.4 H, RDW 13.2, MPV 7.1 L, Gran % 62.5, Lymphocytes % 21.0, Monocytes % 12.6 H, Eosinophils % 3.5, Basophils % 0.4, Absolute Granulocytes 5.4, Absolute Lymphocytes 1.8, Absolute Monocytes 1.1 H, Absolute Eosinophils 0.3, Absolute Basophils 0, PUBS MCHC 34.8 11/26/16 0130: APTT > 120 *H 11/25/16 1757: APTT 51 H Assessment/Plan Assessment: A: A 51 y-o male patient with micro-perforated diverticulitis and history of [facility] prosthetic heart valve and HTN is on his hospital day #7. Patient still presenting with abdominal pain localize in LLQ and Suprapubic region. Patient has no signs and symptoms of inflammation like fevers, leukocytosis or malaise. A PT: 24.8, INR: 2.37 and PTT:118 after Coumadin and Heparin bridge. A second Abd/Pelvis CT scan shows a perforated sigmoid diverticulitis with free air with no changes and interval development of a small 3.0 x 2.2 cm mesenteric abscess collection. Problem List: 1. Micro-perforated Sigmoid Diverticulitis A: This is the most likely diagnosis because patient presents with abdominal pain and Sigmoid Diverticulitis with free abdominal air showed on Abd/Pelvis CT scan. The surgery team was consulted and they evaluated him. This types of complication of Divereticulitis, used to be treated surgically due to high risk of peritonitis and sepsis. This case is a micro-perforation causing localized inflammation that may progress to localized abscess, serenity peritonitis (purulent or feculent), stricture, or fistulization to adjacent tissue. B: Plan: Patient will be manage conservatively. A possible plan to discharge with Metronidazole 250mg Q8 PO and Ciprofloxacin 500mgBID PO, encourage ambulation and good PO hydration. 2. Mesenteric Abscess Collection: A: Patient presented with a small 3.0 x 2.2 cm mesenteric abscess collection. This is a most likely complication of Diverculitis and intrabdominal inflammatory process. B: Plan: Usually a plan for drainage percutaneously or surgically for >4cm abscess in Diverticulitis patient. This patient has an abscess of 3.0cm X 2.2cm but he also has complication of perforation. Surgery team evaluated the case and agreed to keep conservative treatment. Possible plan to discharge, continue with PO antibiotics, F/u as outpatient and need a new Abd/CT scan in a period of two weeks. Watch CBC and BEP in hospital stay daily for inflammatory leukocytosis and electrolytes imbalance. 3. [facility] Prosthetic Heart Valve A. Patient has a history of [facility] Heart Valve placement. Patient was on Coumadin and Heparin bridge, levels of PT: 24.8, INR: 2.37 and PTT:118 were released. Patients with a history of Prosthetic Heart Valve, need therapeutic INR in between 2.5-3.5 with a goal of 3.0. B. Keep anticoagulation treatment. keep Warfarin 8mg PO, stop Heparin 47922 IV Q24H. Plan to discharge and keep daily measurements of INR at home, comunicate results to commissioned defence force officer. F/U with Cloth Painter as outpatient.
--- NOTE | 2016-11-28 11:49 | PN- Cardiology ---
Subjective Subjective: * Patient is now eating normally and has minimal residual abdominal discomfort. Surgery is not planned at this time. * INR is 2.37 Objective Vital Signs and I&Os Vital Signs Date Time Temp Pulse Resp B/P B/P Pulse O2 O2 Flow FiO2 Mean Ox Delivery Rate 11/28 0931 64 140/78 11/28 0650 98.0 64 16 132/80 97 Room Air 11/27 2159 98.0 64 20 130/60 96 11/27 1431 98.7 62 20 140/78 97 Intake & Output 11/28 1600 11/28 0800 11/28 0000 11/27 1600 11/27 0800 11/27 0000 Intake Total 1800 840 Output Total Balance 1800 840 Intake, IV 300 280 Intake, Oral 1500 560 Number 1 2 Bowel Movements Physical Exam: General: WD/ overweight male in NAD; alert and oriented x 3 Neck: no JVD Lungs: clear bilaterally Heart:RRR with 3/6 systolic murmur at the RUSB, LLSB and apex Extremities: mild venous stasis changes, no edema Assessment/Plan Assessment/Plan * Patient is improved. Continue coumadin. His usual dose that he tends to be therapeutic on is 7.5mg. It is reasonable to give 8mg today since he is close to therapeutic and we will check his INR tomorrow. Continue telemetry? No
[2016-11-28] MEDS ORDERED: FLAGYL250 M1 PO ×2 (11:50→15:30)
[2016-11-28] MEDS ORDERED: CIPRO500 M1 PO ×2 (11:50→15:30)
[2016-11-28] MEDS ORDERED: OXYCODONE HCL5 M1 PO ×2 (11:50→15:30)
--- NOTE | 2016-11-28 11:55 | Patient Discharge Instructions ---
Discharge Instructions General Discharge Information You were seen/treated for: Microperforated sigmoid diverticulitis and abscess Watch for these problems: 1. Fever, chills, nausea, vomitting 2. Bloody stools 3. Increased abdominal pain Special Instructions: 1. Follow up with your primay care provider in 1 week 2. Follow up with Dr. Junior in 1 week 3. Complete the full course of antibiotics for 7 more days 4. Check INR tomorrow (11/29/2016) in the morning and call Dr. Alejandra's office for further instruction the amount of coumadin to take 5. Follow up with Dr. Alejandra in 1 week 6. If symptoms worsen before your appointments please call your primary care physician or come to the ED. Diet Continue normal diet: No Recommended Diet: Follow a diet for diverticulitis. Avoid foods that include nuts and seeds. Slowly add fiber to your diet. Activity Full Activity/No Limits: No Activity Self Limited: Yes Acute Coronary Syndrome Inclusion Criteria At DC or during hospital stay patient has or had the following: ACS DIAGNOSIS No Discharge Core Measures Meds if any: Prescribed or Continued at Discharge Meds if any: NOT Prescribed or Continued at Discharge Congestive Heart Failure Inclusion Criteria At DC or during hospital stay patient has or had the following: CHF DIAGNOSIS No Discharge Core Measures Meds if any: Prescribed or Continued at Discharge Meds if any: NOT Prescribed or Continued at Discharge Cerebrovascular accident Inclusion Criteria At DC or during hospital stay patient has or had the following: CVA/TIA Diagnosis No Discharge Core Measures Meds if any: Prescribed or Continued at Discharge Meds if any: NOT Prescribed or Continued at Discharge Venous thromboembolism Inclusion Criteria VTE Diagnosis No VTE Type NONE VTE Confirmed by (Test) NONE Discharge Core Measures - Per Current guidelines, there needs to be overlap - treatment for the first 5 days of Warfarin therapy. - If discharged on Warfarin prior to 5 days of - overlap therapy, the patient will need to be - assessed for post discharge needs including - *Post discharge parental anticoagulation - *Warfarin and/or parental anticoagulation education - *Follow up date to check INR post discharge At least 5 days overlap therapy as Inpatient No Meds if any: Prescribed or Continued at Discharge Note: Overlap Therapy is Warfarin and Anticoagulant Meds if any: NOT Prescribed or Continued at Discharge
[2016-11-28 13:39] LABS: PTT 79 SEC (25-37)
[2016-11-28 14:11] VITALS: BP 120/66
== END 2016-11-28 17:50 | DRG 392 ==
LOC: ERH 20:55 → ERHI 11-21 00:29 → 2NA 11-21 00:29 → ENRESERV 11-21 07:37 → 2NA 11-21 09:47 → ENPENDDIS 11-28 14:33 → 2NA 11-28 17:50
PROVIDERS: Emergency Medicine; Hospitalist; Internal Medicine; Student in an Organized Health Care Education/Training Program; ADMIT Internal Medicine
DX: K57.20 Diverticulitis of large intestine with perforation and abscess without bleeding (principal); J90 Pleural effusion, not elsewhere classified; I10 Essential (primary) hypertension; Z79.01 Long term (current) use of anticoagulants; Z95.2 Presence of prosthetic heart valve; E87.6 Hypokalemia; E83.119 Hemochromatosis, unspecified; I34.0 Nonrheumatic mitral (valve) insufficiency; I36.1 Nonrheumatic tricuspid (valve) insufficiency; I37.1 Nonrheumatic pulmonary valve insufficiency; G47.33 Obstructive sleep apnea (adult) (pediatric); Z87.891 Personal history of nicotine dependence; K40.90 Unilateral inguinal hernia, without obstruction or gangrene, not specified as recurrent; K42.9 Umbilical hernia without obstruction or gangrene
CPT/HCPCS: 2NAP; 2NASP; 36415; 74020; 74174; 74176; 81001; 82436; 87040; 96361; 96374; 96375; 96376; J0131; J0696; J1644